=== PATIENT | male | born 1970 | race Caucasian/White ===

== ENCOUNTER 2021-10-01 11:09 | Emergency (ER) | payer OTHER, SELFPAY ==
[2021-10-01 12:39] VITALS: BP 125/91; PULSE 84; RESP 18; TEMP 37.1; O2SAT 99; BMI 28.5
--- NOTE | 2021-10-01 13:51 | ED_ITS ---
HPI - Skin/Abscess/Foreign Bdy General Chief complaint: Skin/Abscess/Foreign Body Stated complaint: infected burn on foot Time Seen by Provider: 10/01/21 13:47 Source: patient Mode of arrival: ambulatory History of Present Illness HPI narrative: 51-year-old male presenting to the ED complaining of burn to right foot s/p spilling hot gravy on foot 1 week ago. States area initially formed blister which popped spontaneous now becoming increasingly red and painful. Denies fever, chills/tingling MD complaint: abscess/boil Onset (ago): week(s) Quality: burning Pain Consistency: constant Related Data Home Medications Medication Instructions Recorded Confirmed lisinopril 10 mg tablet 10 mg PO DAILY 06/27/21 06/28/21 multivitamin 1 tab PO DAILY 06/27/21 06/28/21 nicotine (polacrilex) 4 mg buccal 4 mg BUCCAL Q4-8H PRN 06/27/21 06/28/21 mini lozenge (Nicorette) pantoprazole 40 mg tablet,delayed 40 mg PO DAILY 06/27/21 06/28/21 release simvastatin 20 mg tablet 20 mg PO BEDTIME 06/27/21 06/28/21 Previous Rx's Medication Instructions Recorded clonazepam 0.5 mg tablet 0.5 mg PO BID 30 Days #60 tab 06/27/21 clotrimazole-betamethasone 1 1 appl TOPICAL BID 10 Days #15 g 06/27/21 %-0.05 % topical cream docusate sodium 100 mg capsule 100 mg PO BID 15 Days #30 cap 06/28/21 (Colace) hydrocortisone 1 % topical cream 1 appl TOPICAL TID PRN 15 Days 06/28/21 (Preparation H Hydrocortisone) #28.4 g cephalexin 500 mg capsule 500 mg PO QID 7 Days #28 cap 10/01/21 silver sulfadiazine 1 % topical 1 appl TOPICAL BID #50 g 10/01/21 cream (Silvadene) Allergies Allergy/AdvReac Type Severity Reaction Status Date / Time No Known Allergies Allergy Verified 06/28/21 07:31 Review of Systems Review of Systems: Constitutional: No Fever, No Chills ENT/Mouth: No Ear Pain, No Nasal Congestion, No sore throat, No Rhinorrhea Cardiovascular: No Chest Pain, No SOB Respiratory: No Cough, No Wheezing Gastrointestinal: No Nausea, No Vomiting, No Abdominal pain Genitourinary: No Urinary Frequency, No Hematuria, No Flank Pain Musculoskeletal: No joint pain, No Myalgias, No Joint Swelling Skin: + Skin Lesions, No rash Neuro: No Weakness, No Numbness, No Paresthesias Yes all other systems are reviewed and are negative COUNT INCLUDES THE [facility] Past Medical History Attestation statement: The following information was validated with the patient. Surgical History History of biopsy History of tonsillectomy Family History Family History Father Heart attack Substance use disorder Mother Cancer of kidney Paternal Aunt Mental health disorder Substance use disorder Social History Social History Housing: Apartment Alcohol intake: former Patient Tobacco Use Status: Current everyday Tobacco user Tobacco use type: Cigarette Cigarettes Per Day: 7 service: No Current occupational status: employed Physical Exam Vital Signs: Vital Signs: Last Vital Signs Temp 98.8 F 10/01/21 12:39 Pulse 84 10/01/21 12:39 Resp 18 10/01/21 12:39 BP 125/91 H 10/01/21 12:39 Pulse Ox 99 10/01/21 12:39 BMI result Body Mass Index 28.5 Const: General: cooperative, healthy appearing and no acute distress Orientation/consciousness: patient oriented x3 Limitations: no limitations HENMT: Head: Yes normal to inspection Ears: hearing grossly normal bilaterally General nose exam: Normal external nose present Face and sinus: Yes normal facial exam Eyes: General: appearance normal, both eyes and all related structures EOM: EOMs intact bilaterally Neck: Neck: Yes normal visual inspection and Yes no meningeal signs Resp: Effort & Inspection: normal respiratory effort and no respiratory distress Cardio: Rate: regular rate Peripheral pulses: dorsalis pedis present Skin: Other: Please refer to image above. Popped blister with underlying erythema. Warm to touch. No streaking. Neurovascularly intact Rashes: no rashes Wounds: no wounds Neuro: General: patient oriented x3 and no meningeal signs Gait exam (Neuro): Normal gait present Extrem: General: Yes normal to inspection MDM - Skin/Abscess/Foreign Bdy MDM Narrative Medical decision making narrative: 51-year-old male presenting to the ED complaining of burn to right foot s/p spilling hot gravy on foot 1 week ago. On exam vital signs stable, NAD/nontoxic appearing, physical exam as above. Area is warm to touch. Concern for overlying cellulitis. Will treat patient with p.o. Keflex and silver Silvadene, discussed worrisome signs symptoms and strict return precautions Medical Records Attestation: I reviewed the patient's medical records. Lab Data Attestation: I reviewed the patient's lab results. Discharge Plan Discharge Clinical Impression: Burn Patient Disposition: Home, Self-Care Additional Instructions: Keflex as an oral antibiotic please take as prescribed In addition apply silver Silvadene to wound as prescribed If area becomes increasingly red, painful, there is red streaking up your foot or you develop fever please return to the ED Please follow-up with her doctor Prescriptions: New cephalexin 500 mg capsule 500 mg PO QID 7 Days Qty: 28 RF: 0 silver sulfadiazine [Silvadene] 1 % cream 1 appl topical BID Qty: 50 RF: 0 No Action multivitamin Tablet 1 tab PO DAILY RF: 0 pantoprazole 40 mg tablet,delayed release (DR/EC) 40 mg PO DAILY RF: 0 lisinopril 10 mg tablet 10 mg PO DAILY RF: 0 simvastatin 20 mg tablet 20 mg PO BEDTIME RF: 0 nicotine (polacrilex) [Nicorette] 4 mg mini lozenge 4 mg buccal Q4-8H PRNRF: 0 clonazepam 0.5 mg tablet 0.5 mg PO BID 30 Days Qty: 60 RF: 3 clotrimazole-betamethasone 1-0.05 % cream 1 appl topical BID 10 Days Qty: 15 RF: 0 docusate sodium [Colace] 100 mg capsule 100 mg PO BID 15 Days Qty: 30 RF: 1 hydrocortisone [Preparation H Hydrocortisone] 1 % cream 1 appl topical TID PRN (Reason: skin irritation) 15 Days Qty: 28.4 RF: 0 Referrals: Mikael Carpio PA-C [Primary Care Provider] - 3 days
[2021-10-01] MEDS: Silver Sulfadiazine 1 % Cream 20 GM TUBE 1 APPL TOPICAL (14:19)
== END 2021-10-01 14:26 | disposition home or self-care (01) ==
PROVIDERS: Emergency Provider Emergency Medicine; PCP Physician Assistant
DX: T25.021A Burn of unspecified degree of right foot, initial encounter (principal); T31.0 Burns involving less than 10% of body surface; X12.XXXA Contact with other hot fluids, initial encounter; Y93.G3 Activity, cooking and baking; M79.671 Pain in right foot; Y92.9 Unspecified place or not applicable; Y99.9 Unspecified external cause status; F17.200 Nicotine dependence, unspecified, uncomplicated
CPT/HCPCS: 99283

== ENCOUNTER 2023-01-01 10:16 | Outpatient (REF) | payer OTHER, SELFPAY ==
[2023-01-01 11:16] LABS: Hematocrit 40.7 % (42.0-52.0); Hemoglobin 13.6 g/dl (14.0-18.0); Mean Corpuscular HGB Conc 33.4 g/dl (31.0-36.0); Mean Corpuscular Hemoglobin 28.9 pg (27.0-33.0); Mean Corpuscular Volume 86.4 fL (80.0-98.0); Mean Platelet Volume 9.8 fL (9.4-12.4); Platelet Count 278 X10*3/uL (160-400); Red Blood Count 4.71 X10*6/uL (4.60-5.80); Red Cell Distribution Width 15.9 % (11.0-16.0); White Blood Count 7.8 X10*3/uL (4.8-10.8)
[2023-01-01 12:08] LABS: Alanine Aminotransferase 12 U/L (0-40); Albumin Level 4.1 g/dL (3.5-5.0); Alkaline Phosphatase 53 U/L (39-117); Anion Gap 12 (12-20); Aspartate Amino Transferase 16 U/L (5-37); Bilirubin Total 0.4 mg/dL (0.0-1.0); Blood Urea Nitrogen 14 mg/dL (9-16); Calcium 9.1 mg/dL (8.4-10.2); Carbon Dioxide 25 mmol/L (22-29); Chloride 106 mmol/L (96-108); Cholesterol 180 mg/dL; Estimated Glomerular Filt Rate > 60; Glucose Fasting 91 mg/dL (60-99); HDL Cholesterol 47 mg/dL; LDL Cholesterol Calculated 119 mg/dl; Potassium 4.7 mmol/L (3.3-5.1); Prostate Specific Antigen Scr 1.48 ng/mL (<0.05-4.0); Sodium 138 mmol/L (135-145); TSH reflex Free T4 1.02 uIU/mL (0.32-4.0); Total Protein 6.5 g/dL (6.5-8.0); Triglycerides 72 mg/dL
[2023-01-01 12:23] LABS: Creatinine Urine 84.55 mg/dL; Microalbumin Urine < 5.0 mg/L
== END 2023-01-01 10:17 | disposition home or self-care (01) ==
LOC: HO.LAB 10:16
PROVIDERS: PCP Physician Assistant; Visit Provider Physician Assistant
DX: Z12.5 Encounter for screening for malignant neoplasm of prostate (principal); I10 Essential (primary) hypertension; E78.2 Mixed hyperlipidemia
CPT/HCPCS: 36415; 80053; 80061; 82043; 84153; 84443; 85027

== ENCOUNTER → 2023-03-31 07:39 | Outpatient (REF) | payer OTHER, SELFPAY ==
--- NOTE | 2023-03-31 07:42 | CA_ITS ---
Acquisition Time: 2023-03-31 08:07:27 Total Exercise Time: 00:09:30 Test Indications: CP Medications: SEE H Protocol: ISIDORO Max HR: 150 BPM 89% of Pred: 168 BPM Max BP: 142/058 mmHG Max Work Load: 10.8 METS Exercise stress test with exercise 9 min 30 sec of Isidoro protocol, achieving 89% MPHR, with mild sob, no chest discomfort, with rare PVC, with normotensive response to exercise, without EKG changes meeting criteria for ischemia. Test reviewed with Dr East. Referred By: Mikael Carpio Overread By: SUZIE BAH
== END ==
LOC: HO.CARD 07:39
PROVIDERS: PCP Physician Assistant; Visit Provider Physician Assistant
DX: R07.9 Chest pain, unspecified (principal)
CPT/HCPCS: 93017

== ENCOUNTER 2023-04-18 13:10 | Outpatient (REF) | payer OTHER, SELFPAY ==
--- NOTE | ~2023-04-18 | CT_ITS ---
EXAMINATION: CT CHEST SCREENING CLINICAL INFORMATION: Current smoker. 37 pack year history. COMPARISON: None available. TECHNIQUE: Multidetector volumetric CT imaging of the chest is performed without contrast using low dose technique. Additional 2D coronal and sagittal reformatted images and axial 3D maximum intensity projection (MIP) images are generated on the CT workstation. This CT examination was performed using dose optimization techniques as appropriate, variously including the following: *Automated exposure control *Adjustment of mA and/or kV according to patient size (this includes techniques or standardized protocols for targeted exams where dose is matched to indication/reason for exam; i.e. extremities or head) *Use of iterative reconstruction technique DLP: 46 mGy-cm FINDINGS: LUNGS: The lungs are clear with no evidence of inflammation or nodules. MEDIASTINUM: Large esophageal hernia. The mediastinum is otherwise normal. CORONARY ARTERY CALCIFICATION: Mild PLEURA: There is no pleural effusion. No pleural mass or thickening. AXILLA: No lymphadenopathy. UPPER ABDOMEN: Unremarkable OSSEOUS STRUCTURES: Degenerative changes of the spine and mild scoliosis. CT/CT lung screening IMPRESSION: Emphysema. No pulmonary nodule. Large esophageal hernia. ASSESSMENT: Lung-RADS category: 1 benign RECOMMENDATION: Annual low-dose chest CT follow-up recommended.
== END 2023-04-18 13:11 | disposition home or self-care (01) ==
LOC: HO.CT 13:10
PROVIDERS: PCP Physician Assistant; Visit Provider Physician Assistant Medical
DX: Z12.2 Encounter for screening for malignant neoplasm of respiratory organs (principal); F17.210 Nicotine dependence, cigarettes, uncomplicated
CPT/HCPCS: 71271; G0296

== ENCOUNTER 2023-08-28 12:38 | Outpatient (REF) | payer OTHER, SELFPAY ==
[2023-08-28 13:00] LABS: Hematocrit 40.4 % (42.0-52.0); Hemoglobin 13.8 g/dl (14.0-18.0); Mean Corpuscular HGB Conc 34.2 g/dl (31.0-36.0); Mean Corpuscular Hemoglobin 30.1 pg (27.0-33.0); Mean Platelet Volume 8.9 fL (9.4-12.4); Platelet Count 189 X10*3/uL (160-400); Red Blood Count 4.59 X10*6/uL (4.60-5.80); Red Cell Distribution Width 19.9 % (11.0-16.0); White Blood Count 6.6 X10*3/uL (4.8-10.8)
[2023-08-28 13:50] LABS: Alanine Aminotransferase 19 U/L (0-40); Albumin Level 4.5 g/dL (3.5-5.0); Alkaline Phosphatase 50 U/L (39-117); Anion Gap 11 (12-20); Aspartate Amino Transferase 29 U/L (5-37); Bilirubin Total 0.4 mg/dL (0.0-1.0); Blood Urea Nitrogen 11 mg/dL (9-16); Calcium 9.4 mg/dL (8.4-10.2); Carbon Dioxide 28 mmol/L (22-29); Chloride 104 mmol/L (96-108); Cholesterol 224 mg/dL (<200); Estimated Glomerular Filt Rate > 60; Glucose Fasting 90 mg/dL (60-99); HDL Cholesterol 65 mg/dL (>40); LDL Cholesterol Calculated 111 mg/dL (<100); Sodium 139 mmol/L (135-145); Total Protein 7.5 g/dL (6.5-8.0); Triglycerides 242 mg/dL (<150)
== END 2023-08-28 12:39 | disposition home or self-care (01) ==
LOC: HO.LAB 12:38
PROVIDERS: PCP Physician Assistant; Visit Provider Physician Assistant
DX: I10 Essential (primary) hypertension (principal)
CPT/HCPCS: 36415; 80053; 80061; 85027

== ENCOUNTER 2023-09-02 15:23 | Outpatient (AMB) | payer OTHER, SELFPAY ==
[2023-09-02 15:34] VITALS: BP 124/80; PULSE 85; O2SAT 98; BMI 26.4
--- NOTE | 2023-09-02 15:34 | MHC.PC.OV ---
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 Accompanied by: Self / Same As Patient Allergies No Known Allergies Allergy (Verified 09/02/23 15:55) Medication List - Last Reconciled 09/02/23 by Mikael Carpio PA-C clonazepam 0.5 mg PO BID 30 days lisinopril 5 mg PO DAILY 90 days multivitamin 1 tab PO DAILY pantoprazole 40 mg PO DAILY 90 days simvastatin 20 mg PO BEDTIME 90 days Tobacco use date assessed: 02/24/23 Dental Screening Dental Screen Date: 09/02/23 Did you have a dental visit in the last 12 months?: No Did you have a dental problem in the last 6 months where you did not have access to dental care?: No Was dental information given to patient?: Patient has dentist HPI f/u HTN/ Smoking cessation, weight check HPI Details Patient is a 53 year-old here today for a follow-up visit. Patient has a past medical history significant for hyperlipidemia, GERD, tobacco use disorder, hypertension. Concerns--> Has been having left wrist and hand pain, Seeing a Surgeon ( Dr Sebastian) at [facility]. Has contouring EMG of his upper extremities which did not show any neuropathy. He reports he would like to get his hearing checked as he feels his hearing is declining. .. Hyperlipidemia: Most recent fasting lipid panel showing borderline high total cholesterol and improved LDL. Continues on statin therapy without any side effect. .. Hypertension:? He does reports blood pressures have been stable at home, today in office blood pressure is normal. ... Smoker:? Has recently got CT chest with lung cancer screening program and no nodules found. He he reports he has been weaning down his smoking.? He used to smoke a pack and half per day.? He reports now smoking 5-6 cigarettes per day. .. Generalized anxiety disorder:? He reports in the past seeing his psychiatrist whom has started him on clonazepam 0.5 mg twice a day.? He has been on benzodiazepines over the last 15 years with good effect.? He uses clonazepam once to twice a day as needed.? He does report having anxiety severe enough to cause him to be out of work. [facility] Medical History (Updated 09/02/23 @ 16:07 by Mikael Carpio PA-C) History of pneumothorax Nicotine dependence, cigarettes, uncomplicated GERD (gastroesophageal reflux disease) HLD (hyperlipidemia) HTN (hypertension) CHEYANNE (generalized anxiety disorder) Surgical History History of chest tube placement History of tonsillectomy History of biopsy Family History Father Heart attack, Onset Age: 54 Substance use disorder Mother Cancer of kidney Paternal Aunt Mental health disorder Substance use disorder Social History Housing: Apartment Alcohol intake: current Alcohol intake frequency: 0-2 drinks per day Patient Tobacco Use Status: Current everyday Tobacco user Tobacco use type: Cigarette Years Smoked: (onset 16yo, 1ppd x 36yrs, 35pyh) e-Cigarette/Vaping Use: Never Used Second Hand Smoke Exposure: Yes service: No Current occupational status: employed 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 Charles Evans, Marga Verde, Angel Hughes and colleagues, with an educational jesu from [employer]. Review of Systems Const Denies headache(s) Eyes Denies loss of vision ENT Denies vertigo, Denies dizziness, Denies headache(s) and Denies sore throat Card Denies chest pain, Denies leg edema and Denies lightheadedness Resp Denies cough, Denies hemoptysis and Denies wheezing GI Denies abdominal pain, Denies melena, Denies constipation, Denies diarrhea and Denies vomiting Denies dysuria, Denies urinary frequency and Denies urinary urgency Musc Denies arthralgias, Denies joint swelling, Denies numbness and Denies tingling Neuro Denies Abnormal speech present, Denies behavioral changes, Denies vertigo, Denies dizziness, Denies headache(s), Denies loss of vision, Denies memory loss, Denies numbness and Denies tingling Psych Denies anxiety, Denies behavioral changes, Denies depression, Denies memory loss and Denies panic attacks Jorge/Lymph Denies easy bleeding and Denies easy bruising Aller/Immun Denies wheezing Physical exam (Primary Care) Vital Signs: Last Vital Signs Pulse 85 09/02/23 15:34 BP 124/80 09/02/23 15:34 Pulse Ox 98 09/02/23 15:34 Oxygen Delivery Method Room Air 09/02/23 15:34 BMI result Body Mass Index 26.4 Tobacco/Smoking Status: Tobacco use Status Tobacco use date assessed 02/24/23 09/02/23 15:40 Patient Tobacco Use Status Current everyday Tobacco 09/02/23 15:40 Tobacco use type Cigarette 09/02/23 15:40 e-Cigarette/Vaping Use Never Used 09/02/23 15:40 Are you ready to quit: No Tobacco cessation counseling provided: Yes Items discussed: Nicotine replacement Relapse Prevention: discussed the importance of a supportive environment, discussed negative mood or depression after quitting, weight gain after smoking is common and discussed dietary, exercise and/or lifestyle changes Number of minutes spent counselin CPT code: 56211 - 4-10 Minutes Thrive Assessment: Date of Thrive Assessment Date Thrive assessed 02/24/23 09/02/23 15:40 Const General: healthy appearing, no acute distress, alert and awake Nutritional Appearance: well nourished Orientation/consciousness: oriented to person, oriented to place and oriented to time HENMT Ears: TM's normal bilaterally General nose exam: Normal nasal mucous membranes and turbinates present Eyes Conjunctivae: conjunctivae normal Sclerae: sclerae normal Pupils: Equal, round and reactive pupils present Neck Neck: Yes no lymphadenopathy and Yes no JVD Thyroid: Thyroid normal Carotids: no bruits Resp Effort & Inspection: normal respiratory effort and not tachypneic Auscultation: no crackles, no rales, no rhonchi and no wheezes Cardio Rate: regular rate Rhythm: regular rhythm Heart sounds: no murmurs and normal S1 and S2 GI Palpation (GI): Soft to palpation, nontender, no hepatomegaly and no splenomegaly Auscultation: normal bowel sounds Skin General skin exam: no rashes or lesions noted and dry skin Neuro General: oriented to person, oriented to place and oriented to time Cranial nerves: Yes Equal, round and reactive pupils present Speech: No Abnormal speech present Gait exam (Neuro): Normal gait present Motor exam (neuro): no tremor noted Extrem Right upper extremity: full ROM Left upper extremity: full ROM Right lower extremity: full ROM; no edema Left lower extremity: full ROM; no edema Psych Mental Status: mental status grossly normal Speech and movement: Normal speech and movement present Affect: normal affect Attitude: cooperative Thought process: Normal thought process present Assessment and Plan Assessment & Plan (1) HTN (hypertension): Code(s): I10 - Essential (primary) hypertension Qualifiers: Hypertension type: primary hypertension Qualified Code(s): I10 - Essential (primary) hypertension Plan: Blood pressure in office today acceptable. Will continue his current dose of lisinopril 5 mg. Advised to continue monitoring blood pressure with goal blood pressure to be below 140/90 and above 90/60 (2) HLD (hyperlipidemia): Code(s): E78.5 - Hyperlipidemia, unspecified Qualifiers: Hyperlipidemia type: mixed hyperlipidemia Qualified Code(s): E78.2 - Mixed hyperlipidemia Plan: Noted patient's most recent fasting lipids with appropriate total cholesterol and LDL. Continues on statin therapy without side effects (3) Tobacco dependence: Code(s): F17.200 - Nicotine dependence, unspecified, uncomplicated Plan: Patient does understand he needs to quit smoking and is willing to try nicotine lozenges. He has found very difficult to quit smoking. He will continue to try to wean down (4) Colon cancer screening: Code(s): Z12.11 - Encounter for screening for malignant neoplasm of colon Plan: Has yet to schedule colonoscopy. He is willing to do Cologuard (5) CHEYANNE (generalized anxiety disorder): Code(s): F41.1 - Generalized anxiety disorder Plan: Patient continues to follow mental therapist and a psychiatrist. He feels his anxiety is fairly well controlled with the use of clonazepam twice a day. (6) SNHL (sensorineural hearing loss): Code(s): H90.5 - Unspecified sensorineural hearing loss Qualifiers: Laterality: bilateral Qualified Code(s): H90.3 - Sensorineural hearing loss, bilateral Plan: Will send for hearing exam Orders: Orders Microalbumin, Random (w Creat) 09/02/23 I10 - Essential (primary) hypertension Complete Blood Count no Diff 09/02/23 K64.8 - Other hemorrhoids Comprehensive [place]. Panel Fast 09/02/23 I10 - Essential (primary) hypertension Lipid Panel 09/02/23 E78.2 - Mixed hyperlipidemia IRON PROFILE 09/02/23 D50.9 - Iron deficiency anemia, unspecified, K64.8 - Other hemorrhoids Referrals Cologuard Test Z12.11 - Encounter for screening for malignant neoplasm of colon Speech and Hearing Referral H90.3 - Sensorineural hearing loss, bilateral Medications: New nicotine (polacrilex) 2 mg buccal Q8H 30 days PRN 81 ea 0RF nicotine cravings F17.210 - Nicotine dependence, cigarettes, uncomplicated Refilled simvastatin 20 mg PO BEDTIME 90 days 90 tabs 1RF E78.2 - Mixed hyperlipidemia clonazepam 0.5 mg PO BID 30 days 60 tabs 3RF F41.1 - Generalized anxiety disorder Coding Level of Care Code Est Pt Level 4 (52944) Diagnoses Primary hypertension I10 Hypertension type: primary hypertension Mixed hyperlipidemia E78.2 Hyperlipidemia type: mixed hyperlipidemia Tobacco dependence F17.200 Colon cancer screening Z12.11 CHEYANNE (generalized anxiety disorder) F41.1 Sensorineural hearing loss (SNHL) of both ears H90.3 Laterality: bilateral Additional Codes Vital Signs *Quality* - CPT code: 79882 - 4-10 Minutes ([id number])
== END 2023-09-02 16:15 | disposition home or self-care (01) ==
PROVIDERS: PCP Physician Assistant; Visit Provider Physician Assistant
DX: I10 Essential (primary) hypertension (principal); E78.2 Mixed hyperlipidemia; F17.200 Nicotine dependence, unspecified, uncomplicated; Z12.11 Encounter for screening for malignant neoplasm of colon; F41.1 Generalized anxiety disorder; H90.3 Sensorineural hearing loss, bilateral
CPT/HCPCS: 99214; 99406

== ENCOUNTER 2023-12-10 09:55 | Emergency (ER) | payer OTHER, SELFPAY ==
--- NOTE | ~2023-12-10 | XR_ITS ---
EXAMINATION: XR CHEST CLINICAL INFORMATION: Cough COMPARISON: Screening CT scan of lungs on 04/18/2023 TECHNIQUE: 2 views of the chest were obtained. FINDINGS: vascularity. LUNGS: A persistent large retrocardiac hiatus hernia filled with air is seen. There is mild right-sided peribronchial cuffing. Flame-shaped alveolar infiltrates with air bronchograms is seen in anterior right lower lobe superior segment. No pneumothorax is seen. BONES: Bony skeleton is intact. XR/XR chest 2V IMPRESSION: 1. Unchanged large retrocardiac hiatus hernia, previously seen on CT scan. 2. Findings are compatible with chronic bronchitis or asthma. 3. Right lower lobe superior segment alveolar infiltrates are seen, suggestive of pneumonia. Follow-up chest x-ray until complete resolution is recommended.
[2023-12-10 09:58] VITALS: BP 151/90; PULSE 98; RESP 18; TEMP 36.6; O2SAT 99; BMI 24.4
--- NOTE | 2023-12-10 10:28 | ED_ITS ---
HPI - General Adult General Chief complaint: Upper Respiratory Symptoms Stated complaint: Bronchitis Time Seen by Provider: 12/10/23 10:28 Source: patient Mode of arrival: ambulatory Limitations: no limitations History of Present Illness HPI narrative: Patient is a 53 year old assigned male at with a history of HTN and tobacco smoking presenting to the emergency department today with a productive cough and coughing so much he is vomiting. Patient states that over the last 2 days, he has had a cough that continues to worsen and is coughing so much he is vomiting mucus. Patient denies any dizziness, lightheadedness, abdominal pain, nausea, vomiting, fever, chills, blurry vision, double vision, loss of vision, chest pain, difficulty breathing, shortness of breath, back pain, night sweats, pain with urination, increased urinary frequency, increased urinary urgency, blood in his urine or stool, syncope or a near syncopal episode, recent trauma or falls, bowel incontinence, bladder incontinence, bowel retention, bladder retention, or any other complaints at this time. Onset (ago): day(s) (2) Severity: mild Severity scale (1-10): 3 Relieving factors: none Exacerbating factors: none Associated symptoms: cough Treatments prior to arrival: none Related Data Home Medications Medication Instructions Recorded Confirmed multivitamin 1 tab PO DAILY 06/27/21 09/02/23 Previous Rx's Medication Instructions Recorded lisinopril 5 mg tablet 5 mg PO DAILY 90 days #90 tabs 02/24/23 pantoprazole 40 mg tablet,delayed 40 mg PO DAILY 90 days #90 tabs 05/02/23 release clonazepam 0.5 mg tablet 0.5 mg PO BID 30 days #60 tabs 09/02/23 nicotine (polacrilex) 2 mg buccal 2 mg buccal Q8H PRN nicotine 09/02/23 mini lozenge cravings 30 days #81 ea simvastatin 20 mg tablet 20 mg PO BEDTIME 90 days #90 tabs 09/02/23 benzonatate 100 mg capsule 100 mg PO BID PRN cough 7 days #14 12/10/23 caps doxycycline hyclate 100 mg tablet 100 mg PO BID 7 days #14 tabs 12/10/23 ondansetron 4 mg disintegrating 4 mg PO Q8H 3 days #9 tabs 12/10/23 tablet prednisone 20 mg tablet 20 mg PO DAILY 7 days #7 tabs 12/10/23 Allergies Allergy/AdvReac Type Severity Reaction Status Date / Time No Known Allergies Allergy Verified 12/10/23 09:58 Review of Systems Constitutional: Constitutional: Reports no additional constitutional complaints, Denies chills, Denies fever(s) and Denies night sweats Eyes: Eyes: Reports no additional eye complaints, Denies blurry vision, Denies change in vision, Denies diplopia, Denies eye discharge, Denies loss of vision and Denies eye pain ENT: Denies dizziness Cardiovascular: Cardiovascular: Reports no additional cardiovascular co mplaints, Denies chest pain, Denies lightheadedness, Denies Loss of Consciousness and Denies dyspnea Respiratory: Respiratory: Reports no additional respiratory complaints, Reports cough and Denies dyspnea Gastrointestinal: Gastrointestinal: Reports no additional gastrointestinal complaints, Denies abdominal pain, Denies melena, Denies hematochezia, Denies change in bowel habits and Denies change in stool character Genitourinary: Genitourinary: Reports no additional male genitourinary complaints, Denies hematuria, Denies oliguria, Denies difficulty urinating, Denies dysuria, Denies urinary frequency, Denies urinary hesitancy, Denies urinary incontinence and Denies urinary urgency Musculoskeletal: Musculoskeletal: Reports no additional musculoskeletal complaints, Denies numbness and Denies tingling Neurologic: Denies dizziness, Denies loss of vision, Denies numbness and Denies tingling Psychiatric: Psychiatric: Reports no additional psychiatric complaints Endocrine: Endocrine: Reports no additional endocrine complaints Hematologic/Lymphatic: Hematologic/Lymphatic: Reports no additional hematologic/lymphatic complaints Allergic/Immunologic: Allergic/Immunologic: Reports no additional allergic/immunologic complaints [facility] Past Medical History Attestation statement: The following information was validated with the patient. Source: old records reviewed and nursing notes reviewed Medical History History of pneumothorax Nicotine dependence, cigarettes, uncomplicated GERD (gastroesophageal reflux disease) HLD (hyperlipidemia) HTN (hypertension) CHEYANNE (generalized anxiety disorder) Surgical History History of chest tube placement History of tonsillectomy History of biopsy Family History Family History Father Heart attack, Onset Age: 54 Substance use disorder Mother Cancer of kidney Paternal Aunt Mental health disorder Substance use disorder Social History Social History Housing: Apartment Alcohol intake: current Alcohol intake frequency: 0-2 drinks per day Patient Tobacco Use Status: Current everyday Tobacco user Tobacco use type: Cigarette Years Smoked: (onset 16yo, 1ppd x 36yrs, 35pyh) e-Cigarette/Vaping Use: Never Used Second Hand Smoke Exposure: Yes Advance Directives: No Advance Directives Information Provided: No service: No Current occupational status: employed 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 [employer] Cognitive needs: No Hearing needs: No Vision needs: Yes (glasses) Physical Exam ED Vital Signs: Vital Signs - 24 hr 12/10/23 09:58 Temperature 98 F Pulse Rate 98 Respiratory Rate 18 Blood Pressure 151/90 H Pulse Oximetry 99 Oxygen Delivery Method Room Air BMI result Body Mass Index 24.4 Const General: cooperative, no acute distress, alert and awake Nutritional Appearance: well nourished Orientation/consciousness: patient oriented x3 Limitations: no limitations HENMT Head: Yes normal to inspection and Yes atraumatic Ears: hearing grossly normal bilaterally and external ears normal General nose exam: Normal external nose present, no nasal discharge noted and no epistaxis Face and sinus: Yes normal facial exam, No abrasion and No laceration Mouth: Normal oral and palatal mucosa present, no drooling and no muffled voice Eyes General: appearance normal, both eyes and all related structures Periorbital: periorbital findings normal Eyelids: Yes eyelids normal Conjunctivae: conjunctivae normal Pupils: Equal, round and reactive pupils present EOM: EOMs intact bilaterally Neck Neck: Yes normal visual inspection, Yes full ROM and Yes no lymphadenopathy Chest Chest palpation & inspection: normal inspection of the chest Resp Effort & Inspection: normal respiratory effort and able to speak in complete sentences Auscultation: clear to auscultation bilaterally Cardio Rate: regular rate Rhythm: regular rhythm GI Inspection: Yes normal to inspection Neuro General: patient oriented x3 and moves all extremities Cranial nerves: Yes Equal, round and reactive pupils present Cognition (Neuro): normal cognition Motor exam (neuro): 5/5 motor strength present throughout Sensory Exam: Normal double simultaneous stimulation for sensation Coordination: [id number] test normal Extrem General: Yes normal to inspection, Yes full ROM and Yes capillary refill normal Psych Appearance: grossly normal Mental Status: mental status grossly normal Affect: normal affect Attitude: cooperative Thought process: Normal thought process present Thought content: Normal thought content present Insight: Good insight present (Psych) Medications Administered Discontinued Medications Generic Name Dose Route Start Last Admin Trade Name Michael PRN Reason Stop Dose Admin Ondansetron HCl 4 mg 12/10/23 11:34 12/10/23 11:41 Ondansetron Odt 4 Mg Tab.Bairondis GARETHINGU 12/10/23 11:35 4 mg ONCE ONE Administration Procedures Smoking Cessation Time Spent Discussing Smoking Cessation w/Patient (min): 15 Patient Acknowledges Need for Cessation: Yes Medical Decision Making Medical Decision Making MDM Narrative: Patient is a 53 year old assigned male at with a history of HTN and tobacco use presenting to the emergency department today with worsening cough. Patient's physical exam was unremarkable. Patient's COVID-19 and influenza tests were negative. Patient's chest x-ray showed right lower lobe pneumonia. I explained my physical exam findings as well as all test results to the patient. I answered all questions asked by the patient. I spent >10 minutes counseling the patient on smoking cessation. I stressed the importance of the patient taking his medication as prescribed. I stressed the importance of the patient following up with his primary care provider. I stressed the importance of the patient returning to the emergency department immediately if his symptoms were to worsen or if he were to develop any dizziness, shortness of breath, difficulty breathing, chest pain, blurry vision, loss of vision, nausea, vomiting, abdominal pain, fever, chills, back pain, or any other complaints. Patient verbalized agreement and understanding with this treatment plan and discharge. Differential Diagnosis Differential Diagnoses: The differential diagnosis associated with the presentation includes pneumonia bronchitis Influenza COVID RSV Admission/Observation Consideration of admission/observation: Escalation of care including admission/observation considered Patient would have been admitted to the hospital had his work up had any findings where hospital admission was appropriate and his clinical presentation warranted hospital admission. Lab Data [facility] Lab Attestation statement: I reviewed the patient's lab results. My interpretation of these results are in the MDM Rationale portion of this note. Labs: Lab Results 12/10/23 Range/Units 10:45 COVID-19 (TRISTIAN) Negative (Negative) COVID-19 Clin Com See Note Influenza Type A (CHARITO) Negative (Negative) Influenza Type B (CHARITO) Negative (Negative) Influenza A & B Note See Note Independent Interpretation I performed an independent interpretation of an: Plain X-Ray Interpretation: My interpretation is in agreement with the radiologist's impression of this imaging study. EXAMINATION: XR CHEST CLINICAL INFORMATION: Cough COMPARISON: Screening CT scan of lungs on 04/18/2023 TECHNIQUE: 2 views of the chest were obtained. FINDINGS: vascularity. LUNGS: A persistent large retrocardiac hiatus hernia filled with air is seen. There is mild right-sided peribronchial cuffing. Flame-shaped alveolar infiltrates with air bronchograms is seen in anterior right lower lobe superior segment. No pneumothorax is seen. BONES: Bony skeleton is intact. XR/XR chest 2V IMPRESSION: 1. Unchanged large retrocardiac hiatus hernia, previously seen on CT scan. 2. Findings are compatible with chronic bronchitis or asthma. 3. Right lower lobe superior segment alveolar infiltrates are seen, suggestive of pneumonia. Follow-up chest x-ray until complete resolution is recommended. Dictated By: Jorge L Roe Signed By: Electronically signed by Jorge L Roe 12/10/23 1126 Radiology Impression Discussion of test interpretation with radiology: I have reviewed the radiologist's reading. Prescription Management I considered prescription management with: Antibiotic (patient prescribed an antibiotic for pneumonia) Discharge Plan Discharge Clinical Impression: Pneumonia Patient Disposition: Home, Self-Care Instructions: Pneumonia (ED) Additional Instructions: Follow up with your primary care provider. Return to the emergency department immediately if your symptoms worsen or if you develop any dizziness, shortness of breath, difficulty breathing, chest pain, blurry vision, loss of vision, nausea, vomiting, abdominal pain, fever, chills, back pain, or any other complaints. Prescriptions: New prednisone 20 mg tablet 20 mg PO DAILY 7 Days Qty: 7 0RF benzonatate 100 mg capsule 100 mg PO BID PRN (Reason: cough) 7 Days Qty: 14 0RF doxycycline hyclate 100 mg tablet 100 mg PO BID 7 Days Qty: 14 0RF ondansetron 4 mg tablet,disintegrating 4 mg PO Q8H 3 Days Qty: 9 0RF No Action pantoprazole 40 mg tablet,delayed release (DR/EC) 40 mg PO DAILY 90 Days Qty: 90 1RF multivitamin Tablet 1 tab PO DAILY lisinopril 5 mg tablet 5 mg PO DAILY 90 Days Qty: 90 1RF simvastatin 20 mg tablet 20 mg PO BEDTIME 90 Days Qty: 90 1RF clonazepam 0.5 mg tablet 0.5 mg PO BID 30 Days Qty: 60 3RF nicotine (polacrilex) 2 mg mini lozenge 2 mg buccal Q8H PRN (Reason: nicotine cravings) 30 Days Qty: 81 0RF Referrals: Mikael Carpio PA-C [Primary Care Provider] - Stand Alone Forms: Work/School Release Interventions: ED Discharge Assessment Last Done: 12/10/23 12:27 Discharge Date/Time: 12/10/23 12:28 Print Language: Greek
[2023-12-10 11:13] LABS: COVID-19 Test Negative (Negative); IDNOW Serial# 58CA691E
[2023-12-10 11:16] LABS: IDNOW Serial# 152EDE1D; Influenza A Negative (Negative); Influenza B2 Negative (Negative)
[2023-12-10] MEDS: Ondansetron ODT 4 MG TAB.RAPDIS TRANSLINGU (11:41)
== END 2023-12-10 12:28 | disposition home or self-care (01) ==
PROVIDERS: Emergency Provider Emergency Medicine Emergency Medical Services; PCP Physician Assistant
DX: J18.9 Pneumonia, unspecified organism (principal); Z11.52 Encounter for screening for COVID-19; F17.210 Nicotine dependence, cigarettes, uncomplicated
CPT/HCPCS: 71046; 87502; 87635; 99283

== ENCOUNTER 2024-02-24 11:57 | Outpatient (REF) | payer OTHER, SELFPAY ==
[2024-02-24 12:57] LABS: Hematocrit 38.5 % (42.0-52.0); Hemoglobin 13.9 g/dl (14.0-18.0); Mean Corpuscular HGB Conc 36.1 g/dl (31.0-36.0); Mean Corpuscular Hemoglobin 33.3 pg (27.0-33.0); Mean Corpuscular Volume 92.3 fL (80.0-98.0); Mean Platelet Volume 9.5 fL (9.4-12.4); Platelet Count 181 X10*3/uL (160-400); Red Blood Count 4.17 X10*6/uL (4.60-5.80); Red Cell Distribution Width 14.7 % (11.0-16.0); White Blood Count 5.8 X10*3/uL (4.8-10.8)
[2024-02-24 13:41] LABS: Alanine Aminotransferase 20 U/L (0-40); Albumin Level 4.1 g/dL (3.5-5.0); Alkaline Phosphatase 52 U/L (39-117); Anion Gap 14 (12-20); Aspartate Amino Transferase 29 U/L (5-37); Bilirubin Total 0.3 mg/dL (0.0-1.0); Blood Urea Nitrogen 8 mg/dL (9-16); Calcium 8.5 mg/dL (8.4-10.2); Carbon Dioxide 24 mmol/L (22-29); Chloride 104 mmol/L (96-108); Cholesterol 190 mg/dL (<200); Estimated Glomerular Filt Rate > 60; Glucose Fasting 89 mg/dL (60-99); HDL Cholesterol 62 mg/dL (>40); Iron 35 mcg/dL (45-160); LDL Cholesterol Calculated 104 mg/dL (<100); Percent Iron Saturation 11 % (15-50); Potassium 3.6 mmol/L (3.3-5.1); Sodium 138 mmol/L (135-145); Total Iron Binding Capacity 328 mcg/dL (228-428); Triglycerides 122 mg/dL (<150); Unsaturated Iron Binding 293 ug/dL
[2024-02-24 14:33] LABS: Creatinine Urine 175.32 mg/dL; Microalbumin Urine < 5.0 mg/L
== END 2024-02-24 11:58 | disposition home or self-care (01) ==
LOC: HO.LAB 11:57
PROVIDERS: PCP Physician Assistant; Visit Provider Physician Assistant
DX: I10 Essential (primary) hypertension (principal); K64.8 Other hemorrhoids; D50.9 Iron deficiency anemia, unspecified; E78.2 Mixed hyperlipidemia
CPT/HCPCS: 36415; 80053; 80061; 82043; 82570; 83540; 85027

== ENCOUNTER 2024-03-02 13:17 | Outpatient (AMB) | payer OTHER, SELFPAY ==
[2024-03-02 13:22] VITALS: BP 144/86; PULSE 103; O2SAT 97; BMI 25.7
--- NOTE | 2024-03-02 13:22 | MHC.PC.OV ---
Vital Signs 03/02/24 13:22 Height 5 ft 9 in Weight 174 lb 2 oz BMI 25.7 BP 144/86 H Blood Pressure Location Lt brachial Position Sitting Pulse 103 H Pulse Source Pulse Oximeter Pulse Oximetry (%) 97 Oxygen Delivery Method Room Air Intake Visit Reasons: Annual exam Intake Note: Patient is here today for a physical. 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 Accompanied by: Self / Same As Patient Allergies varenicline [From Chantix] Adverse Reaction (Intermediate, Verified 03/02/24 13:46) mood changes Medication List - Last Reconciled 03/02/24 by Mikael Carpio PA-C clonazepam 0.5 mg PO BID 30 days ferrous sulfate 325 mg PO BID 30 days lisinopril 5 mg PO DAILY 90 days multivitamin 1 tab PO DAILY nicotine (polacrilex) 2 mg buccal Q8H PRN 30 days pantoprazole 40 mg PO DAILY 90 days simvastatin 20 mg PO BEDTIME 90 days Tobacco use date assessed: 03/02/24 Dental Screening Dental Screen Date: 03/02/24 Did you have a dental visit in the last 12 months?: Yes Did you have a dental problem in the last 6 months where you did not have access to dental care?: No Was dental information given to patient?: Patient has dentist HPI Annual exam HPI Details Patient is a 53 year-old here today for a routine annual physical.. Patient has a past medical history significant for hyperlipidemia, GERD, tobacco use disorder, hypertension. Concerns--> reports feeling very tired during the daytime. Often falling asleep at work. He reports this has been evident over the last few years. He does have a moderate risk for obstructive sleep apnea. Will send for sleep study to evaluate for obstructive sleep apnea. .. Hyperlipidemia: Most recent fasting lipid panel showing borderline high total cholesterol and improved LDL. Continues on statin therapy without any side effect. .. Hypertension:? Patient's blood pressure today in office slightly elevated. Increase his lisinopril to 10 mg for better blood pressure control. ... Smoker:? Has recently got CT chest with lung cancer screening program and no nodules found. He he reports he has been weaning down his smoking.? He used to smoke a pack and half per day.? He reports now smoking 11 cigarettes per day. .. Generalized anxiety disorder:? He reports in the past seeing his psychiatrist whom has started him on clonazepam 0.5 mg twice a day.? He has been on benzodiazepines over the last 15 years with good effect.? He uses clonazepam once to twice a day as needed.? He does report having anxiety severe enough to cause him to be out of work. colonoscopy: Reports doing cologaurd in 2019 and reports it was normal. Willing to do Cologuard again Vaccines: Declines COVID Vaccine or flu, needs PCV-declines, up-to-date with tetanus vaccine , considering shingrex Laboratory Tests 01/01/23 08/28/23 02/24/24 10:26 12:47 12:18 RBC 4.59 L 4.17 L Hgb 13.6 L 13.8 L 13.9 L Creatinine 0.93 0.84 Iron 35 L Triglycerides 242 H 122 Cholesterol 180 224 H 190 LDL Cholesterol, C alc 119 111 H 104 H HDL Cholesterol 47 65 PSA Screen 1.48 PFSH Medical History History of pneumothorax Nicotine dependence, cigarettes, uncomplicated GERD (gastroesophageal reflux disease) HLD (hyperlipidemia) HTN (hypertension) CHEYANNE (generalized anxiety disorder) Surgical History History of chest tube placement History of tonsillectomy History of biopsy Family History Father Heart attack, Onset Age: 54 Substance use disorder Mother Cancer of kidney Paternal Aunt Mental health disorder Substance use disorder Social History (Updated 03/02/24 @ 13:44 by Mikael Carpio PA-C) Housing: Apartment Alcohol intake: current Alcohol intake frequency: a few times a month Patient Tobacco Use Status: Current everyday Tobacco user Tobacco use type: Cigarette Cigarettes Per Day: 11 Years Smoked: (onset 16yo, 1ppd x 36yrs, 35pyh) e-Cigarette/Vaping Use: Never Used Second Hand Smoke Exposure: Yes service: No Current occupational status: employed 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 1. Little interest or pleasure in doing things: not at all 2. Feeling down, depressed, or hopeless: not at all 3. Trouble falling or staying asleep, or sleeping too much: not at all 4. Feeling tired or having little energy: not at all 5. Poor appetite or overeating: not at all 6. Feeling bad about yourself - or that you are a failure or have let yourself or your family down: not at all 7. Trouble concentrating on things, such as reading the newspaper or watching television: not at all 8. Moving or speaking so slowly that other people could have noticed. Or the opposite - being so fidgety or restless that you have been moving around a lot more than usual: not at all 9. Thoughts that you would be better off or of hurting yourself in some way: not at all Total score: 0 Depression Screening Interpretation: Negative Depression Screening Done: Yes 13053 - PHQ-9 Billing: Yes Source: Developed by Drs. Charles Evans, Marga Verde, Angel Hughes and colleagues, with an educational jesu from [employer]. Thrive Questionnaire Date Thrive assessed: 03/02/24 I am a: Patient What is your living situation today?: I have a steady place to live Within the past 12 months, did the food you bought not last and you didn't have the money to get more?: Never true Within the past 12 months, did you worry whether your food would run out before you got money to buy more?: Never true Do you have trouble paying for medicines?: No Do you have trouble getting transportation to medical appointments?: No Do you have trouble paying your heating and electricity bill?: No Do you have trouble taking care of your child, family member or friend?: No Do you have trouble with day-to-day activities such as bathing, preparing meals, shopping, managing finances, etc.?: No Are you currently unemployed and looking for a job?: No Are you interested in more education?: No Please select the resources that you would like help with: None Currently or been in a relationship where the following occur: no concerns reported THRIVE Score: 0 AUDIT C Alcohol Use Questionnaire (AUDIT-C) 1. How often do you have a drink containing alcohol?: Never 3. How often do you have six or more drinks on one occasion?: Never Total Score: 0 CHEYANNE-7 AMB Questionnaire CHEYANNE-7 Date CHEYANNE - 7 assessed: 03/02/24 Feeling nervous, anxious, or on edge: 0 = Not at all Not being able to stop or control worryin = More than half the days Worrying too much about different things: 2 = More than half the days Trouble relaxin = Not at all Being so restless that it is hard to sit still: 0 = Not at all Becoming easily annoyed or irritable: 3 = Nearly every day Feeling afraid as if something awful might happen: 3 = Nearly every day Total CHEYANNE-7 score (0-4 normal; 5-9 mild; 10-14 moderate; 15-21 severe): 10 Source: Developed by Drs. Charles Evans, Marga Verde, Angel Hughes and colleagues, with an educational jesu from [employer]. CHEYANNE-7 Assessment Billing CHEYANNE-7 Assessment Tool: CHEYANNE-7 Assessment 77609 Review of Systems Const Denies excessive sweating, Denies fatigue, Denies headache(s), Reports malaise and Reports stops breathing during sleep Eyes Denies blurry vision ENT Denies dysphagia, Denies vertigo, Denies dizziness, Denies headache(s), Denies hearing loss and Denies tinnitus Card Denies chest pain, Denies chest pain with activity, Denies syncope, Denies irregular heart rhythm and Denies dyspnea Resp Denies chest congestion, Denies cough, Denies hemoptysis, Denies dyspnea and Denies wheezing GI Denies abdominal pain, Denies melena, Denies hematochezia, Denies coffee ground emesis, Denies dysphagia, Denies diarrhea, Denies nausea and Denies vomiting Denies difficulty urinating, Denies dysuria, Denies urinary frequency, Denies urinary hesitancy and Denies urinary urgency Musc Denies arthralgias, Denies limited range of motion, Denies muscle cramps and Denies muscle weakness Skin/Breast Denies rash and Denies skin ulcer Neuro Denies Abnormal speech present, Denies confusion, Denies vertigo, Denies dizziness, Denies syncope, Denies headache(s), Denies memory loss and Denies seizure-like activity Psych Denies anxiety, Denies confusion, Denies depression, Denies memory loss, Denies panic attacks and Denies paranoia Endo Denies excessive sweating, Denies fatigue, Denies flushing, Denies polydipsia and Denies polyuria Aller/Immun Denies wheezing Physical exam (Primary Care) Vital Signs: Last Vital Signs Pulse 103 H 03/02/24 13:22 BP 144/86 H 03/02/24 13:22 Pulse Ox 97 03/02/24 13:22 Oxygen Delivery Method Room Air 03/02/24 13:22 BMI result Body Mass Index 25.7 Tobacco/Smoking Status: Tobacco use Status Tobacco use date assessed 03/02/24 03/02/24 13:24 Patient Tobacco Use Status Current everyday Tobacco 03/02/24 13:24 Tobacco use type Cigarette 03/02/24 13:24 e-Cigarette/Vaping Use Never Used 03/02/24 13:24 PHQ-9: PHQ-9 Score PHQ-9: Total score 0 03/02/24 13:24 Depression Screening Interpretation: Negative Thrive Assessment: Date of Thrive Assessment Date Thrive assessed 03/02/24 03/02/24 13:24 Currently or been in a relationship where the following occur: no concerns reported Const General: cooperative, comfortable, no acute distress, alert and awake; No confusion Orientation/consciousness: oriented to person, oriented to place, patient oriented x3 and No confusion HENMT Head: Yes normocephalic Ears: external ears normal and TM's normal bilaterally Face and sinus: No sinus tenderness Mouth: Normal oral and palatal mucosa present and tongue normal Teeth and gingiva: dentition normal and gingiva normal Throat: Yes posterior oropharynx normal, Yes tonsils normal and Yes uvula midline Eyes Conjunctivae: conjunctivae normal Sclerae: sclerae normal Pupils: Equal, round and reactive pupils present EOM: EOMs intact bilaterally Direct Ophthalmoscopy: No no photophobia Neck Neck: Yes no lymphadenopathy, No tender and Yes no JVD Thyroid: Thyroid normal Carotids: no bruits Chest Chest palpation & inspection: no tenderness Resp Effort & Inspection: normal respiratory effort, no audible wheezes, not labored and no stridor Auscultation: no crackles, no rales, no rhonchi and no wheezes Cardio Jugular venous distension: no JVD Rate: regular rate, not bradycardic and not tachycardic Rhythm: regular rhythm Bruits: no carotid bruits Peripheral pulses: Peripheral pulses 2+ throughout GI Inspection: Yes normal to inspection, No abdominal wall ecchymosis and No visible herniation Palpation (GI): Soft to palpation, nontender, no guarding, not rigid and No hepatosplenomegaly present Auscultation: normoactive bowel sounds General: Yes no CVA tenderness Back/Spine/Pelvis Back: no CVA tenderness and No back tenderness Cervical Spine: cervical ROM normal Thoracic/Lumbar Spine: thoracic and lumbar spine normal to inspection, straight leg raise negative bilaterally, No thoraco-lumbar ROM limited and No lumbar spinal tenderness Skin Lesions: no lesions Rashes: no rashes Wounds: no wounds Neuro General: oriented to person, oriented to place, patient oriented x3, CN's II-XI intact bilaterally and No confusion Cranial nerves: Yes Equal, round and reactive pupils present and Yes Normal accommodation reflex present Cognition (Neuro): normal cognition Speech: No Abnormal speech present Gait exam (Neuro): Normal gait present Motor exam (neuro): 5/5 motor strength present throughout Extrem Right upper extremity: full ROM; no cyanosis Left upper extremity: full ROM; no cyanosis Right lower extremity: no edema Left lower extremity: no edema Psych Appearance: grossly normal Mental Status: mental status grossly normal Affect: normal affect Attitude: cooperative Thought process: Normal thought process present Assessment and Plan Assessment & Plan (1) Annual physical exam: Code(s): Z00.00 - Encounter for general adult medical examination without abnormal findings (2) HTN (hypertension): Code(s): I10 - Essential (primary) hypertension Qualifiers: Hypertension type: primary hypertension Qualified Code(s): I10 - Essential (primary) hypertension Plan: Blood pressure in office today acceptable. Will continue his current dose of lisinopril 5 mg. Advised to continue monitoring blood pressure with goal blood pressure to be below 140/90 and above 90/60 (3) HLD (hyperlipidemia): Code(s): E78.5 - Hyperlipidemia, unspecified Qualifiers: Hyperlipidemia type: mixed hyperlipidemia Qualified Code(s): E78.2 - Mixed hyperlipidemia Plan: Noted patient's most recent fasting lipids with appropriate total cholesterol and LDL. Continues on statin therapy without side effects (4) Tobacco dependence: Code(s): F17.200 - Nicotine dependence, unspecified, uncomplicated Plan: Patient does understand he needs to quit smoking he does have nicotine lozenges available to him. Has tried Chantix though had mood changes as a side effect. He has found very difficult to quit smoking. He will continue to try to wean down (5) Colon cancer screening: Code(s): Z12.11 - Encounter for screening for malignant neoplasm of colon Plan: Has yet to schedule colonoscopy. He is willing to do Cologuard (6) CHEYANNE (generalized anxiety disorder): Code(s): F41.1 - Generalized anxiety disorder Plan: Patient's CHEYANNE-7 score positive for anxiety which has been existing condition for him. Patient continues to follow mental therapist and a psychiatrist. He feels his anxiety is fairly well controlled with the use of clonazepam twice a day. (7) DION (obstructive sleep apnea): Code(s): G47.33 - Obstructive sleep apnea (adult) (pediatric) Plan: He does report daytime somnolence, he does admit to significant other doing he snores very loud. He is interested in getting in-lab sleep study to evaluate for obstructive sleep apnea. STOP BANG- questionnaire showing moderate risk for sleep apnea (8) HTN (hypertension): Code(s): I10 - Essential (primary) hypertension Qualifiers: Hypertension type: primary hypertension Qualified Code(s): I10 - Essential (primary) hypertension Plan: Patient's blood pressure elevated today in office. Will increase his lisinopril to 10 mg for better blood pressure control. Advised to monitor blood pressure at home with goal blood pressure be below 140/90 Orders: Orders RT PSG in-lab sleep study Today G47.33 - Obstructive sleep apnea (adult) (pediatric) Lipid Panel 6 Months E78.2 - Mixed hyperlipidemia Prostate Specific Antigen Scr 6 Months I10 - Essential (primary) hypertension, Z12.5 - Encounter for screening for malignant neoplasm of prostate Comprehensive [place]. Panel Fast 6 Months I10 - Essential (primary) hypertension Complete Blood Count no Diff 6 Months I10 - Essential (primary) hypertension Referrals Cologuard Test Z12.11 - Encounter for screening for malignant neoplasm of colon Medications: New lisinopril 10 mg PO DAILY 90 tabs 1RF I10 - Essential (primary) hypertension Refilled pantoprazole 40 mg PO DAILY 90 days 90 tabs 1RF K21.9 - Gastro-esophageal reflux disease without esophagitis clonazepam 0.5 mg PO BID 30 days 60 tabs 3RF F41.1 - Generalized anxiety disorder Discontinued lisinopril Discontinued Reason: Doctor's Order 5 mg PO DAILY 90 days 90 tabs 1RF I10 - Essential (primary) hypertension Patient Instructions: Goal: Blood pressure to remain below 140/90 Barrier: Adherence to healthy eating habits and physical activity. Coding Level of Care Code Est Pt Prev Care 40-64y(99377) Diagnoses Annual physical exam Z00.00 Primary hypertension I10 Hypertension type: primary hypertension Mixed hyperlipidemia E78.2 Hyperlipidemia type: mixed hyperlipidemia Tobacco dependence F17.200 Colon cancer screening Z12.11 CHEYANNE (generalized anxiety disorder) F41.1 DION (obstructive sleep apnea) G47.33 Additional Codes CHEYANNE-7 Assessment Billing - CHEYANNE-7 Assessment Tool: CHEYANNE-7 Assessment 52511 ([id number])
== END 2024-03-02 15:47 | disposition home or self-care (01) ==
PROVIDERS: PCP Physician Assistant; Visit Provider Physician Assistant
DX: Z00.00 Encounter for general adult medical examination without abnormal findings (principal); I10 Essential (primary) hypertension; E78.2 Mixed hyperlipidemia; F17.210 Nicotine dependence, cigarettes, uncomplicated; F41.1 Generalized anxiety disorder; G47.33 Obstructive sleep apnea (adult) (pediatric)
CPT/HCPCS: 99396

== ENCOUNTER 2024-08-04 14:40 | Outpatient (REF) | payer OTHER, SELFPAY ==
--- NOTE | ~2024-08-04 | XR_ITS ---
EXAMINATION: XR LUMBOSACRAL SPINE CLINICAL INFORMATION: Low back pain. COMPARISON: None available. TECHNIQUE: Three views of the lumbosacral spine. FINDINGS: S-shaped curvature of the lumbar spine. Endplate sclerosis at the L5-S1. Grade 1 anterolisthesis L5-S1. No lytic or blastic lesions. Calcified plaques, vascular. XR/XR lumbar spine 2-3V IMPRESSION: Grade 1 anterolisthesis L5-S1. Electronically signed by: Jairo Hayes MD 09/03/2024 03:09 PM DARRIN MARSH
== END 2024-08-04 14:41 | disposition home or self-care (01) ==
LOC: HO.XRAY 14:40
PROVIDERS: PCP Physician Assistant; Visit Provider Physician Assistant
DX: M54.50 Low back pain, unspecified (principal)
CPT/HCPCS: 72100

== ENCOUNTER → 2024-08-04 14:44 | Outpatient (BNV) | payer OTHER, SELFPAY | PROVIDERS: PCP Physician Assistant; Visit Provider Radiology Diagnostic Radiology | DX: M54.50 Low back pain, unspecified (principal) | CPT/HCPCS: 72100 ==

== ENCOUNTER 2024-08-16 09:42 | Outpatient (AMB) | payer OTHER, SELFPAY ==
--- NOTE | 2024-08-16 09:50 | MHC.OFFVIS ---
Vital Signs 08/16/24 09:56 Height 5 ft 9 in Weight 173 lb 2 oz BMI 25.6 BP 110/70 Blood Pressure Location Lt brachial Position Sitting Respiration 16 Pulse 90 Pulse Source Pulse Oximeter Pulse Oximetry (%) 97 Oxygen Delivery Method Room Air Intake Visit Reasons: Low Back Pain Intake Note: Patient comes in for initial visit was referred by [facility] primary care. He is accompanied by María Elena Diamond. Reports pain 4.5/10. Accompanied by: Spouse Allergies varenicline [From Chantix] Adverse Reaction (Intermediate, Verified 08/16/24 09:59) mood changes HPI Comments Details: Rodrigo is very pleasant 54 years old gentleman who presents in my office with complains on pain in the lower back. He reports that this pain started gradually 2 and 1/2 months ago. This is not even chronic pain yet. He reports that he does not know the reason why his pain started. He reports that pain is mostly aggravated with prolonged standing and prolonged sitting. Pain is aggravated with activities. He reports that flexing forward hurts him more than flexing backwards. He reports that he works full-time and she performs very often torso twisting but not heavy lifting or sharp bending. Because of his pain he can not sleep normally, he can not do activities of daily living, he can take care of himself but he can not function normally. Movements aggravate his pain heat applications and ibuprofen oral medication makes his pain better. The pain is most severe at night and in the evening. The least severe in the morning. In terms of tissue damage he describes his pain as stabbing, lancinating, sharp, lacerating, dull, hurting, heavy, punishing, killing, spreading, piercing, right, tearing. He never had physical therapy. He had an x-ray of the lumbar spine performed by primary care provider however the results are not ready yet. He never had physical therapy never had chiropractic manipulations. Jhonathan had acupuncture occupational therapy. Never had home traction unit. He never had any injections. His past medical history significant for headaches hypertension history of fatigue and anemia. History of dizziness and fainting. History of heart murmur and shortness of breath. He never had any surgeries before. He admits smoking cigarettes 1/2 a pack a day for past 38 years. He denies drinking alcohol he drinks coffee and caffeinated beverages including soda. He denies recreational drugs. PFSH Medical History (Updated 08/03/24 @ 13:38 by Mikael Carpio PA-C) HTN (hypertension) HLD (hyperlipidemia) History of pneumothorax Nicotine dependence, cigarettes, uncomplicated GERD (gastroesophageal reflux disease) Iron deficiency anemia CHEYANNE (generalized anxiety disorder) SNHL (sensorineural hearing loss) Surgical History History of chest tube placement History of tonsillectomy History of biopsy Family History Father Heart attack, Onset Age: 54 Substance use disorder Mother Cancer of kidney Paternal Aunt Mental health disorder Substance use disorder Social History (Updated 03/02/24 @ 13:44 by Mikael Carpio PA-C) Housing: Apartment Alcohol intake: current Alcohol intake frequency: a few times a month Patient Tobacco Use Status: Current everyday Tobacco user Tobacco use type: Cigarette Cigarettes Per Day: 11 Years Smoked: (onset 16yo, 1ppd x 36yrs, 35pyh) e-Cigarette/Vaping Use: Never Used Second Hand Smoke Exposure: Yes service: No Current occupational status: employed 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 Cognitive needs: No Hearing needs: No Vision needs: Yes (glasses) Review of Systems Const All systems reviewed & are unremarkable except as noted in HPI and below ENT Reports Normal hearing present Card Reports no additional complaints Resp Reports no additional complaints GI Reports no additional complaints Reports no additional complaints Musc Reports as per HPI Neuro Reports no additional complaints, Reports Normal hearing present, Denies Abnormal speech present and Denies Sensory deficit (Neuro) Psych Reports no additional complaints Endo Reports no additional complaints Jorge/Lymph Reports no additional complaints Physical Exam Vital Signs: Last Vital Signs Pulse 90 08/16/24 09:56 Resp 16 08/16/24 09:56 BP 110/70 08/16/24 09:56 Pulse Ox 97 08/16/24 09:56 Oxygen Delivery Method Room Air 08/16/24 09:56 BMI result Body Mass Index 25.6 Const General: no acute distress, well developed, alert, awake and Physically active; No acute distress Nutritional Appearance: average body habitus Orientation/consciousness: patient oriented x3 Limitations: no limitations Eyes General: appearance normal, both eyes and all related structures Pupils: Equal, round and reactive pupils present EOM: EOMs intact bilaterally Neck Neck: Yes full ROM Chest Chest palpation & inspection: normal inspection of the chest Resp Effort & Inspection: normal respiratory effort, able to speak in complete sentences, normal respiratory pattern, no audible wheezes and no cough Cardio Jugular venous distension: no JVD GI Inspection: Yes normal to inspection Back/Spine/Pelvis Other: Able to stand on bilateral tiptoes in bilateral heels. Able to flex himself backwards but not forward very severe pain initiates right away. Valsalva maneuver is positive for pain increase. Severino test is equivocal bilaterally. Pelvic compression and pelvic distraction tests are negative. SLR is negative bilaterally. Denies pain radiation into bilateral lower extremities. Neuro General: patient oriented x3 and gait normal Cranial nerves: Yes CN's II-XII intact bilaterally, Yes Equal, round and reactive pupils present, Yes Normal hearing present and Yes Ability to bilaterally elevate shoulders present Speech: No Abnormal speech present Gait exam (Neuro): Normal gait present Motor exam (neuro): 5/5 motor strength present throughout Sensory Exam: No Sensory deficit (Neuro) Extrem General: No pedal edema Psych Speech and movement: Normal speech and movement present Affect: normal affect Attitude: cooperative Thought process: Normal thought process present Thought content: Normal thought content present Insight: Good insight present (Psych) Judgement: Good judgement present (Psych) Assessment & Plan Assessment & Plan (1) Low back pain: Code(s): M54.50 - Low back pain, unspecified Category: Medical Plan This patient pain is still can not be considered chronic, it is at the best is subacute. He tried NSAIDs with minimal results. I recommended him that we will start to treat him with conservative measures 1st. I will send him for physical therapy at [facility] core. The diagnosis will be low back pain. I also describing baclofen 10 mg t.i.d.. I recommended him to monitor his blood pressure while on baclofen. I also recommended him to consider side effects if side effects occur let us know. When his x-ray will be ready and physical therapy completed we will meet in 6 weeks and we will discuss if it is still necessary further treatment for his lower back pain. Orders: Orders PT Evaluation and Treatment Today M54.50 - Low back pain, unspecified Medications: New baclofen Monitor your blood pressure while on baclofen once a day. 10 mg PO TID 90 tabs 6RF 30 days Coding Level of Care Code New Pt Level 3 (33705) Diagnoses Low back pain M54.50
[2024-08-16 09:56] VITALS: BP 110/70; PULSE 90; RESP 16; O2SAT 97; BMI 25.6
== END 2024-08-16 10:16 | disposition home or self-care (01) ==
PROVIDERS: PCP Physician Assistant; Referring Provider Physician Assistant; Visit Provider Anesthesiology
DX: M54.50 Low back pain, unspecified (principal)
CPT/HCPCS: 99203

== ENCOUNTER → 2024-08-16 09:42 | Outpatient (BNVA) | payer OTHER, SELFPAY | PROVIDERS: PCP Physician Assistant; Referring Provider Physician Assistant; Visit Provider Anesthesiology ==

== ENCOUNTER 2024-09-27 10:37 | Outpatient (AMB) | payer OTHER, SELFPAY ==
--- NOTE | 2024-09-27 10:38 | A.OFFVIS_ITS ---
Vital Signs 09/27/24 10:46 Height 5 ft 9 in Weight 172 lb 6 oz BMI 25.5 BP 125/68 Blood Pressure Location Rt brachial Position Sitting Respiration 16 Pulse 97 Pulse Source Pulse Oximeter Pulse Oximetry (%) 97 Oxygen Delivery Method Room Air Intake Visit Reasons: 6 Week f/u /discuss xray Intake Note: Patient comes in to discuss xray results. reports pain 03/05. Allergies varenicline [From Chantix] Adverse Reaction (Intermediate, Verified 09/27/24 10:47) mood changes HPI Comments Details: Rodrigo Continues to endorse pain in the lower back. He went for physical therapy on my order, he had 1 evaluation session and he tried home exercise p jd. He reported that for treatment sessions scheduled on each Friday for the month of September. He reports no side effects on baclofen he was prescribed last time. He denies any help from baclofen. I will increase the dose today for baclofen to be 20 milligrams/mL. His x-ray is not demonstrating any free flags, there is L5-S1 spondylolisthesis, there is L5-S1 sclerosis of the endplates. He endorses today that flexing forward as well as flexing backwards aggravate his pain equally. Most of the pain he reports is when he is trying to get out of the car. His pain started gradually 2 and 1/2 months ago. No inciting events. Pain is aggravated with activities. He reports that flexing forward hurts him more than flexing backwards. He reports that he works full-time and she performs very often torso twisting but not heavy lifting or sharp bending. Movements aggravate his pain heat applications and ibuprofen oral medication makes his pain better. The pain is most severe at night and in the evening. The least severe in the morning. His past medical history significant for headaches hypertension history of fatigue and anemia. History of dizziness and fainting. History of heart murmur and shortness of breath. He never had any surgeries before. He admits smoking cigarettes 1/2 a pack a day for past 38 years. He denies drinking alcohol he drinks coffee and caffeinated beverages including soda. He denies recreational drugs. [facility] Medical History (Updated 08/03/24 @ 13:38 by Mikael Carpio PA-C) HTN (hypertension) HLD (hyperlipidemia) History of pneumothorax Nicotine dependence, cigarettes, uncomplicated GERD (gastroesophageal reflux disease) Iron deficiency anemia CHEYANNE (generalized anxiety disorder) SNHL (sensorineural hearing loss) Surgical History History of chest tube placement History of tonsillectomy History of biopsy Family History Father Heart attack, Onset Age: 54 Substance use disorder Mother Cancer of kidney Paternal Aunt Mental health disorder Substance use disorder Social History (Updated 03/02/24 @ 13:44 by Mikael Carpio PA-C) Housing: Apartment Alcohol intake: current Alcohol intake frequency: a few times a month Patient Tobacco Use Status: Current everyday Tobacco user Tobacco use type: Cigarette Cigarettes Per Day: 11 Years Smoked: (onset 16yo, 1ppd x 36yrs, 35pyh) e-Cigarette/Vaping Use: Never Used Second Hand Smoke Exposure: Yes service: No Current occupational status: employed Current occupation: [employer] Cognitive needs: No Hearing needs: No Vision needs: Yes (glasses) Review of Systems Const All systems reviewed & are unremarkable except as noted in HPI and below ENT Reports Normal hearing present Neuro Reports Normal hearing present, Denies Abnormal speech present and Denies Sensory deficit (Neuro) Physical Exam Const General: no acute distress, well developed, alert, awake and Physically active; No acute distress Nutritional Appearance: average body habitus Orientation/consciousness: patient oriented x3 Limitations: no limitations Eyes General: appearance normal, both eyes and all related structures Pupils: Equal, round and reactive pupils present EOM: EOMs intact bilaterally Neck Neck: Yes full ROM Chest Chest palpation & inspection: normal inspection of the chest Resp Effort & Inspection: normal respiratory effort, able to speak in complete sentences, normal respiratory pattern, no audible wheezes and no cough Cardio Jugular venous distension: no JVD GI Inspection: Yes normal to inspection Back/Spine/Pelvis Other: Able to stand on bilateral tiptoes in bilateral heels. Able to flex himself backwards but not forward very severe pain initiates right away. Valsalva maneuver is positive for pain increase. Severino test is equivocal bilaterally. Pelvic compression and pelvic distraction tests are negative. SLR is negative bilaterally. Denies pain radiation into bilateral lower extremities. Neuro General: patient oriented x3 and gait normal Cranial nerves: Yes CN's II-XII intact bilaterally, Yes Equal, round and reactive pupils present, Yes Normal hearing present and Yes Ability to bilaterally elevate shoulders present Speech: No Abnormal speech present Gait exam (Neuro): Normal gait present Motor exam (neuro): 5/5 motor strength present throughout Sensory Exam: No Sensory deficit (Neuro) Extrem General: No pedal edema Psych Speech and movement: Normal speech and movement present Affect: normal affect Attitude: cooperative Thought process: Normal thought process present Thought content: Normal thought content present Insight: Good insight present (Psych) Judgement: Good judgement present (Psych) Results Reviewed Results Reviewed: X-ray lumbar spine 08/04/2024. FINDINGS: S-shaped curvature of the lumbar spine. Endplate sclerosis at the L5-S1. Grade 1 anterolisthesis L5-S1. No lytic or blastic lesions. Calcified plaques, vascular. Assessment & Plan Assessment & Plan (1) Low back pain: Code(s): M54.50 - Low back pain, unspecified Category: Medical Plan Rodrigo will continue physical therapy. He will be prescribed today 20 mg baclofen p.o. t.i.d. this is increased from 10 mg baclofen she was prescribed last time. After he will complete his physical therapy and if his pain is not better I will send him for the MRI of the lumbar spine. Sclerosis of the endplates L5-S1 could be vertebra genic pain syndrome. Medial branch blocks could be tried to diagnose the pain of this patient as well. Medications: New baclofen 20 mg PO TID 30 days 90 tabs 6RF Discontinued baclofen Monitor your blood pressure while on baclofen once a day. Discontinued Reason: Doctor's Order 10 mg PO TID 30 days 90 tabs 6RF Patient Instructions: I here by testify that I spent 35 minutes in conversation with this patient as well as evaluating his diagnostic studies evaluating his participation in physical therapy planning his care and organizing this note. Coding Level of Care Code Est Pt Level 4 (82354) Diagnoses Low back pain M54.50
[2024-09-27 10:46] VITALS: BP 125/68; PULSE 97; RESP 16; O2SAT 97; BMI 25.5
== END 2024-09-27 11:02 | disposition home or self-care (01) ==
PROVIDERS: PCP Physician Assistant; Visit Provider Anesthesiology
DX: M54.50 Low back pain, unspecified (principal)
CPT/HCPCS: 99214

== ENCOUNTER 2024-09-28 10:45 | Outpatient (RCR) | payer OTHER, SELFPAY ==
--- NOTE | 2024-09-13 17:22 | MHC.PT.EP ---
[facility] [place] Office [place] Office [place] Office [address] Mercedes Medina [address] [phone] F: [phone] F: [phone] F: [phone] F: [phone] Physical Therapy Plan of Care Date of Evaluation: 09/13/24 Date of Surgery: N/A Diagnosis: low back pain (RL) Assessment: pt is a 54 y/o male presenting to physical therapy w/ referring diagnosis of low back pain. Xray imaging (+) for grade 1 L5-S1 anterolisthesis. Impairments include pain, decreased range of motion, decreased strength, impaired functional mobility, impaired postural awareness, and altered ambulation mechanics. pt is a good candidate for skilled PT due to age, potential remediation of impairments, typical disease/condition progression and prognosis, comorbidities, and motivation. pt would benefit from skilled PT intervention to provide a tailored strengthening and stretching exercise program, functional training, gait training, postural re-training, neuromuscular re-education, modalities as needed for pain, equipment safety demonstration. Frequency and Duration: The patient will be seen 2x/wk for 4 wks Short Term Goals: pt will be I w/ HEP to promote self-management of condition. pt will demo proper sitting posture w/ lumbar roll to promote neutral spine. Halfway Goals: pt will report a statistically significant improvement in self-reported outcome measure, Manny, to promote return to PLOF. pt will demo proper lifting mechanics x5 reps w/ 15# to promote neutral spine w/ director workforce management. Treatment Plan: Modalities to reduce pain, spasms and effusion. Manual therapy to restore motion and function. Therapeutic exercise to improve strength and flexibility. Neuromuscular re-education for posture and balance. Therapeutic activities to return to functional activities of daily living. Electronically signed by: Nasima Bey PT, DPT Please sign and return to therapist. Thank you for your referral.
--- NOTE | 2024-10-28 09:34 | MHC.PT.DC ---
[facility] [place] [facility] [place] Office [place] Office [address] Mercedes Medina 140 [facility] [phone] F: [phone] F: [phone] F: [phone] F: [phone] Physical Therapy Discharge Report Diagnosis: low back pain (RL) Date of Surgery: N/A Date of Evaluation: 09/13/24 Date of Discharge: 10/28/24 Treatments to Date: 2 Cancellations to Date: 1 No Shows to Date: 2 Discharge Status: Visit Non-compliance Discharge Summary: The patient overall only attended his initial evaluation and one follow-up appointment. He was given a core and pelvic stabilization home exercise program; however, he had difficulty performing these exercises correctly on his own. I encouraged him to trial a back brace for work-related tasks given his anterolisthesis. I did not emphasize wearing it for home activities. He no showed his last two scheduled appointments and is discharged for non-compliance. Electronically signed by: Nasima Bey PT, DPT Please sign and return to therapist. Thank you for your referral.
== END 2024-10-28 09:34 | disposition home or self-care (01) ==
LOC: HO.PT 10:45
PROVIDERS: PCP Physician Assistant; Visit Provider Anesthesiology
DX: M54.50 Low back pain, unspecified (principal)
CPT/HCPCS: 97110; 97140; 97162; 97530

== ENCOUNTER 2025-01-31 11:31 | Outpatient (REF) | payer OTHER, SELFPAY ==
[2025-01-31 12:02] LABS: Hematocrit 42.4 % (42.0-52.0); Hemoglobin 14.4 g/dl (14.0-18.0); Mean Corpuscular Volume 91.2 fL (80.0-98.0); Mean Platelet Volume 9.5 fL (9.4-12.4); Platelet Count 230 X10*3/uL (160-400); Red Blood Count 4.65 X10*6/uL (4.60-5.80); Red Cell Distribution Width 15.6 % (11.0-16.0); White Blood Count 6.2 X10*3/uL (4.8-10.8)
[2025-01-31 13:01] LABS: Alanine Aminotransferase 16 U/L (0-40); Albumin Level 4.1 g/dL (3.5-5.0); Anion Gap 10 (12-20); Aspartate Amino Transferase 22 U/L (5-37); Bilirubin Total 0.4 mg/dL (0.0-1.0); Blood Urea Nitrogen 11 mg/dL (9-16); Calcium 9.3 mg/dL (8.4-10.2); Carbon Dioxide 26 mmol/L (22-29); Chloride 105 mmol/L (96-108); Cholesterol 165 mg/dL (<200); Estimated Glomerular Filt Rate > 60; Glucose Fasting 92 mg/dL (60-99); HDL Cholesterol 41 mg/dL (>40); Iron 53 mcg/dL (45-160); LDL Cholesterol Calculated 103 mg/dL (<100); Percent Iron Saturation 15 % (15-50); Potassium 4.2 mmol/L (3.3-5.1); Sodium 137 mmol/L (135-145); Total Iron Binding Capacity 344 mcg/dL (228-428); Total Protein 6.9 g/dL (6.5-8.0); Triglycerides 107 mg/dL (<150); Unsaturated Iron Binding 291 ug/dL
[2025-01-31 13:02] LABS: Prostate Specific Antigen Scr 0.54 ng/mL (<0.05-4.0)
[2025-01-31 13:47] LABS: Alkaline Phosphatase 49 U/L (39-117)
== END 2025-01-31 11:32 | disposition home or self-care (01) ==
LOC: HO.LAB 11:31
PROVIDERS: PCP Physician Assistant; Visit Provider Physician Assistant
DX: D50.9 Iron deficiency anemia, unspecified (principal); E78.2 Mixed hyperlipidemia; Z12.5 Encounter for screening for malignant neoplasm of prostate; I10 Essential (primary) hypertension
CPT/HCPCS: 36415; 80053; 80061; 83540; 84153; 85027

== ENCOUNTER 2025-03-08 13:15 | Outpatient (REF) | payer OTHER, SELFPAY ==
--- NOTE | ~2025-03-08 | XR_ITS ---
EXAMINATION: XR CHEST 2 VIEWS HISTORY: J40 - Bronchitis, not specified as acute or chronic COMPARISON: Comparison is made with the prior examination dated 12/10/2023. FINDINGS: PA and lateral views of the chest are submitted. The lungs are expanded and clear. There is no pleural effusion, pneumothorax, or pulmonary vascular congestion. The heart is normal in size there is a small to moderate hiatal hernia. The bones are intact. XR/XR chest 2V IMPRESSION: Small to moderate hiatal hernia. No acute cardiopulmonary abnormality. Electronically signed by: Charles Madison MD 03/08/2025 03:56 PM EDT
== END 2025-03-08 13:16 | disposition home or self-care (01) ==
LOC: HO.XRAY 13:15
PROVIDERS: PCP Physician Assistant; Visit Provider Physician Assistant
DX: Z00.00 Encounter for general adult medical examination without abnormal findings (principal); H90.3 Sensorineural hearing loss, bilateral; J40 Bronchitis, not specified as acute or chronic; E78.2 Mixed hyperlipidemia; I10 Essential (primary) hypertension; K44.9 Diaphragmatic hernia without obstruction or gangrene; F41.1 Generalized anxiety disorder; R51.9 Headache, unspecified; F17.210 Nicotine dependence, cigarettes, uncomplicated; Z79.899 Other long term (current) drug therapy
CPT/HCPCS: 71046; 96127

== ENCOUNTER 2025-03-08 13:15 | Outpatient (AMB) | payer OTHER, SELFPAY ==
--- NOTE | 2025-03-08 13:22 | A.OFFPC_ITS ---
Vital Signs 03/08/25 13:23 Height 5 ft 9 in Weight 176 lb 4 oz BMI 26.0 BP 112/78 Blood Pressure Location Lt brachial Position Sitting Pulse 94 Pulse Source Pulse Oximeter Temp 97.1 F Temp Source Temporal Artery Scan Pulse Oximetry (%) 98 Oxygen Delivery Method Room Air Intake Visit Reasons: PE Sign Hanger Required: No Accompanied by: Self / Same As Patient Allergies varenicline [From Chantix] Adverse Reaction (Intermediate, Verified 03/08/25 13:38) mood changes Medication List - Last Reconciled 03/08/25 by Mikael Carpio PA-C baclofen 20 mg PO TID 30 days clonazepam 0.5 mg PO BID 30 days ferrous sulfate 325 mg PO BID 30 days lisinopril 10 mg PO DAILY multivitamin 1 tab PO DAILY nicotine (polacrilex) 2 mg buccal Q8H PRN 30 days pantoprazole 40 mg PO DAILY 90 days simvastatin 20 mg PO BEDTIME 90 days Tobacco use date assessed: 03/08/25 Dental Screening Dental Screen Date: 03/08/25 Did you have a dental visit in the last 12 months?: Yes Did you have a dental problem in the last 6 months where you did not have access to dental care?: No Was dental information given to patient?: Patient has dentist HPI PE HPI Details Patient is a 54 year-old here today for a routine annual physical.. Patient has a past medical history significant for hyperlipidemia, GERD, tobacco use disorder, hypertension. Concerns--> He previously experienced discomfort from a large noted hiatal hernia and was advised to consult a thoracic surgeon for possible intervention. He had reported respiratory symptoms, leading to an urgent care visit diagnosing bronchial thickening, likely indicative of chronic bronchitis. Also reports a newly developed head pain over the last month and a half, described as a throbbing sensation, which has gradually become more frequent, though not disrupting sleep or associated with any known physical trauma. .. Hyperlipidemia: Most recent fasting lipid panel showing borderline high total cholesterol and improved LDL. Continues on statin therapy without any side effect. .. Hypertension:? Patient's blood pressure acceptable today in office. He continues on lisinopril 10 mg with good effect on his blood pressure. ... Smoker:? Has recently got CT chest with lung cancer screening program and no nodules found. He continues to smoke a half pack of cigarettes. He does report picking a quit date of June 25 . Of note the large hiatal hernia was noted on CT lung in 2022 .. Generalized anxiety disorder:? He reports in the past seeing his psychiatrist whom has started him on clonazepam 0.5 mg twice a day.? He has been on benzodiazepines over the last 15 years with good effect.? He uses clonazepam once to twice a day as needed.? He does report having anxiety severe enough to cause him to be out of work. colonoscopy: Cologuard done in 4-, repeat 3 years Vaccines: Declines COVID Vaccine or flu, needs PCV-declines, up-to-date with tetanus vaccine , considering shingrex Laboratory Tests 08/28/23 02/24/24 01/31/25 12:47 12:18 11:48 RBC 4.65 Hgb 14.4 Creatinine 0.91 Iron 35 L 53 Cholesterol 224 H 190 165 LDL Cholesterol, C alc 104 H 103 H PSA Screen 0.54 PFSH Medical History HTN (hypertension) HLD (hyperlipidemia) History of pneumothorax Nicotine dependence, cigarettes, uncomplicated GERD (gastroesophageal reflux disease) Iron deficiency anemia CHEYANNE (generalized anxiety disorder) SNHL (sensorineural hearing loss) Surgical History History of chest tube placement History of tonsillectomy History of biopsy Family History Father Heart attack, Onset Age: 54 Substance use disorder Mother Cancer of kidney Paternal Aunt Mental health disorder Substance use disorder Social History Housing: Apartment Alcohol intake: current Alcohol intake frequency: former alcohol drinker Patient Tobacco Use Status: Current everyday Tobacco user Tobacco use type: Cigarette Cigarettes Per Day: 11 Years Smoked: (onset 16yo, 1ppd x 36yrs, 35pyh) e-Cigarette/Vaping Use: Never Used Second Hand Smoke Exposure: Yes service: No Current occupational status: employed 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 1. Little interest or pleasure in doing things: not at all 2. Feeling down, depressed, or hopeless: not at all 3. Trouble falling or staying asleep, or sleeping too much: not at all 4. Feeling tired or having little energy: not at all 5. Poor appetite or overeating: not at all 6. Feeling bad about yourself - or that you are a failure or have let yourself or your family down: not at all 7. Trouble concentrating on things, such as reading the newspaper or watching television: not at all 8. Moving or speaking so slowly that other people could have noticed. Or the opposite - being so fidgety or restless that you have been moving around a lot more than usual: not at all 9. Thoughts that you would be better off or of hurting yourself in some way: not at all Total score: 0 Depression Screening Interpretation: Negative Depression Screening Done: Yes 27713 - PHQ-9 Billing: Yes Source: Developed by Drs. Charles Evans, Marga Verde, Angel Hughes and colleagues, with an educational jesu from [employer]. Thrive Questionnaire Date Thrive assessed: 03/08/25 I am a: Patient What is your living situation today?: I choose not to answer this question Within the past 12 months, did the food you bought not last and you didn't have the money to get more?: I choose not to answer this question Within the past 12 months, did you worry whether your food would run out before you got money to buy more?: I choose not to answer this question Do you have trouble paying for medicines?: I choose not to answer this question Do you have trouble getting transportation to medical appointments?: I choose not to answer this question Do you have trouble paying your heating and electricity bill?: I choose not to answer this question Do you have trouble taking care of your child, family member or friend?: I choose not to answer this question Do you have trouble with day-to-day activities such as bathing, preparing meals, shopping, managing finances, etc.?: I choose not to answer this question Are you currently unemployed and looking for a job?: I choose not to answer this question Are you interested in more education?: I choose not to answer this question Please select the resources that you would like help with: None Currently or been in a relationship where the following occur: I choose not to answer THRIVE Score: 0 AUDIT C Alcohol Use Questionnaire (AUDIT-C) 1. How often do you have a drink containing alcohol?: Never 3. How often do you have six or more drinks on one occasion?: Never Total Score: 0 CHEYANNE-7 AMB Questionnaire CHEYANNE-7 Date CHEYANNE - 7 assessed: 03/08/25 Feeling nervous, anxious, or on edge: 1 = Several days Not being able to stop or control worryin = Not at all Worrying too much about different things: 0 = Not at all Trouble relaxin = Not at all Being so restless that it is hard to sit still: 0 = Not at all Becoming easily annoyed or irritable: 0 = Not at all Feeling afraid as if something awful might happen: 0 = Not at all Total CHEYANNE-7 score (0-4 normal; 5-9 mild; 10-14 moderate; 15-21 severe): 1 Source: Developed by Drs. Charles Evans, Marga eVrde, Angel Hughes and colleagues, with an educational jesu from [employer]. CHEYANNE-7 Assessment Billing CHEYANNE-7 Assessment Tool: CHEYANNE-7 Assessment 34145 Review of Systems Const Denies body aches, Denies chills, Denies excessive sweating, Denies fatigue, Denies fever(s) and Denies headache(s) Eyes Denies blurry vision ENT Denies dysphagia, Denies vertigo, Denies dizziness, Denies headache(s), Denies hearing loss and Denies tinnitus Card Denies chest pain, Denies chest pain with activity, Denies syncope, Denies irregular heart rhythm and Denies dyspnea Resp Denies chest congestion, Denies cough, Denies hemoptysis, Denies dyspnea and Denies wheezing GI Denies abdominal pain, Denies melena, Denies hematochezia, Denies coffee ground emesis, Denies dysphagia, Denies diarrhea, Denies nausea and Denies vomiting Denies difficulty urinating, Denies dysuria, Denies urinary frequency, Denies urinary hesitancy and Denies urinary urgency Musc Denies arthralgias, Denies limited range of motion, Denies muscle cramps and Denies muscle weakness Skin/Breast Denies rash and Denies skin ulcer Neuro Denies Abnormal speech present, Denies confusion, Denies vertigo, Denies dizziness, Denies syncope, Denies headache(s), Denies memory loss and Denies seizure-like activity Psych Denies anxiety, Denies confusion, Denies depression, Denies memory loss, Denies panic attacks and Denies paranoia Endo Denies excessive sweating, Denies fatigue, Denies flushing, Denies polydipsia and Denies polyuria Aller/Immun Denies wheezing Physical exam (Primary Care) Vital Signs: Last Vital Signs Temp 97.1 F 03/08/25 13:23 Pulse 94 03/08/25 13:23 BP 112/78 03/08/25 13:23 Pulse Ox 98 03/08/25 13:23 Oxygen Delivery Method Room Air 03/08/25 13:23 BMI result Body Mass Index 26.0 Tobacco/Smoking Status: Tobacco use Status Tobacco use date assessed 03/08/25 03/08/25 13:24 Patient Tobacco Use Status Current everyday Tobacco 03/08/25 13:23 Tobacco use type Cigarette 03/08/25 13:23 e-Cigarette/Vaping Use Never Used 03/08/25 13:23 Are you ready to quit: Yes Tobacco cessation counseling provided: Yes Items discussed: Nicotine replacement Relapse Prevention: discussed the importance of a supportive environment, discussed negative mood or depression after quitting, weight gain after smoking is common and discussed dietary, exercise and/or lifestyle changes Number of minutes spent counselin CPT code: 83037 - 4-10 Minutes PHQ-9: PHQ-9 Score PHQ-9: Total score 0 03/08/25 13:23 Depression Screening Interpretation: Negative Thrive Assessment: Date of Thrive Assessment Date Thrive assessed 03/08/25 03/08/25 13:23 Currently or been in a relationship where the following occur: I choose not to answer Const General: cooperative, comfortable, no acute distress, alert and awake; No confusion Orientation/consciousness: oriented to person, oriented to place, patient oriented x3 and No confusion HENMT Head: Yes normocephalic Ears: external ears normal and TM's normal bilaterally Face and sinus: No sinus tenderness Mouth: Normal oral and palatal mucosa present and tongue normal Teeth and gingiva: dentition normal and gingiva normal Throat: Yes posterior oropharynx normal, Yes tonsils normal and Yes uvula midline Eyes Conjunctivae: conjunctivae normal Sclerae: sclerae normal Pupils: Equal, round and reactive pupils present EOM: EOMs intact bilaterally Direct Ophthalmoscopy: No no photophobia Neck Neck: Yes no lymphadenopathy, No tender and Yes no JVD Thyroid: Thyroid normal Carotids: no bruits Chest Chest palpation & inspection: no tenderness Resp Effort & Inspection: normal respiratory effort, no audible wheezes, not labored and no stridor Auscultation: no crackles, no rales, no rhonchi and no wheezes Cardio Jugular venous distension: no JVD Rate: regular rate, not bradycardic and not tachycardic Rhythm: regular rhythm Bruits: no carotid bruits Peripheral pulses: Peripheral pulses 2+ throughout GI Inspection: Yes normal to inspection, No abdominal wall ecchymosis and No visible herniation Palpation (GI): Soft to palpation, nontender, no guarding, not rigid and No hepatosplenomegaly present Auscultation: normoactive bowel sounds General: Yes no CVA tenderness Back/Spine/Pelvis Back: no CVA tenderness and No back tenderness Cervical Spine: cervical ROM normal Thoracic/Lumbar Spine: thoracic and lumbar spine normal to inspection, straight leg raise negative bilaterally, No thoraco-lumbar ROM limited and No lumbar spinal tenderness Skin Lesions: no lesions Rashes: no rashes Wounds: no wounds Neuro General: oriented to person, oriented to place, patient oriented x3, CN's II-XI intact bilaterally and No confusion Cranial nerves: Yes Equal, round and reactive pupils present and Yes Normal accommodation reflex present Cognition (Neuro): normal cognition Speech: No Abnormal speech present Gait exam (Neuro): Normal gait present Motor exam (neuro): 5/5 motor strength present throughout Extrem Right upper extremity: full ROM; no cyanosis Left upper extremity: full ROM; no cyanosis Right lower extremity: no edema Left lower extremity: no edema Psych Appearance: grossly normal Mental Status: mental status grossly normal Affect: normal affect Attitude: cooperative Thought process: Normal thought process present Coding Level of Care Code Est Pt Prev Care 40-64y(69488) Diagnoses Annual physical exam Z00.00 Sensorineural hearing loss (SNHL) of both ears H90.3 Laterality: bilateral Bronchitis J40 Mixed hyperlipidemia E78.2 Hyperlipidemia type: mixed hyperlipidemia Primary hypertension I10 Hypertension type: primary hypertension Esophageal hernia K44.9 CHEYANNE (generalized anxiety disorder) F41.1 Nicotine dependence, cigarettes, uncomplicated F17.210 Nonintractable episodic headache, unspecified headache type R51.9 Headache type: unspecified Headache chronicity pattern: episodic headache Intractability: not intractable Additional Codes CHEYANNE-7 Assessment Billing - CHEYANNE-7 Assessment Tool: CHEYANNE-7 Assessment 38212 ([id number]) PHQ-9 - 83344 - PHQ-9 Billing: Yes ([id number]) Vital Signs *Quality* - CPT code: 51319 - 4-10 Minutes ([id number]) Assessment & Plan Assessment & Plan (1) Annual physical exam: Code(s): Z00.00 - Encounter for general adult medical examination without abnormal findings Category: Medical Plan: As per HPI (2) SNHL (sensorineural hearing loss): Code(s): H90.5 - Unspecified sensorineural hearing loss Category: Medical Qualifiers: Laterality: bilateral Qualified Code(s): H90.3 - Sensorineural hearing loss, bilateral Plan: Patient requesting hearing exam (3) Bronchitis: Code(s): J40 - Bronchitis, not specified as acute or chronic Category: Medical Plan: A follow-up chest x-ray is arranged to evaluate bronchial thickening noted previously. Encouragement of smoking cessation as a critical step in management. (4) HLD (hyperlipidemia): Code(s): E78.5 - Hyperlipidemia, unspecified Category: Medical Qualifiers: Hyperlipidemia type: mixed hyperlipidemia Qualified Code(s): E78.2 - Mixed hyperlipidemia Plan: Most recent lipid panel showing good control of his total cholesterol and LDL. He will continue his current dose of statin with goal LDL to remain below 130 (5) HTN (hypertension): Code(s): I10 - Essential (primary) hypertension Category: Medical Qualifiers: Hypertension type: primary hypertension Qualified Code(s): I10 - Essential (primary) hypertension Plan: Patient's blood pressure acceptable today in office. Will continue his current dose of lisinopril. Goal blood pressures to remain below 140/90 (6) Esophageal hernia: Code(s): K44.9 - Diaphragmatic hernia without obstruction or gangrene Category: Medical Plan: Referral to a thoracic surgeon for evaluation and potential corrective surgery . He does report having left-sided chest pain and discomfort that has been worsening. Unclear if this is related to his large hiatal hernia. The surgeon will discuss surgical intervention benefits, risks, and outcomes. (7) CHEYANNE (generalized anxiety disorder): Code(s): F41.1 - Generalized anxiety disorder Category: Medical Plan: Patient continues with use of clonazepam 0.5 mg b.i.d. with good effect on reducing his anxiety. (8) Nicotine dependence, cigarettes, uncomplicated: Comment: (current smoker - onset 16yo, 1ppd x 37yrs, now 1/2ppd - 35pyh) Code(s): F17.210 - Nicotine dependence, cigarettes, uncomplicated Category: Medical Plan: Patient does understand he needs to quit smoking. He picked a quit date of June 25 test quit smoking. He would like nicotine lozenges to help him quit. (9) Head pain: Code(s): R51.9 - Headache, unspecified Category: Medical Qualifiers: Headache type: unspecified Headache chronicity pattern: episodic headache Intractability: not intractable Qualified Code(s): R51.9 - Headache, unspecified Plan: Consideration of imaging to further assess unexplained head pain. Orders: Orders XR chest 2V Today J40 - Bronchitis, not specified as acute or chronic CT head/brain wo IV con Today R51.9 - Headache, unspecified Referrals Thoracic/General Surgery Referral K44.9 - Diaphragmatic hernia without obstruction or gangrene Speech and Hearing Referral H90.3 - Sensorineural hearing loss, bilateral Medications: New ibuprofen 800 mg PO Q8H 30 days PRN 90 tabs 1RF pain M54.50 - Low back pain, unspecified Refilled clonazepam 0.5 mg PO BID 30 days 60 tabs 3RF F41.1 - Generalized anxiety disorder lisinopril 10 mg PO DAILY 90 tabs 1RF I10 - Essential (primary) hypertension nicotine (polacrilex) 2 mg buccal Q8H 30 days PRN 81 ea 0RF nicotine cravings F17.210 - Nicotine dependence, cigarettes, uncomplicated pantoprazole 40 mg PO DAILY 90 days 90 tabs 1RF K21.9 - Gastro-esophageal reflux disease without esophagitis simvastatin 20 mg PO BEDTIME 90 days 90 tabs 1RF E78.2 - Mixed hyperlipidemia pantoprazole 40 mg PO DAILY 90 days 90 tabs 1RF K21.9 - Gastro-esophageal reflux disease without esophagitis lisinopril 10 mg PO DAILY 90 tabs 1RF I10 - Essential (primary) hypertension clonazepam 0.5 mg PO BID 30 days 60 tabs 3RF F41.1 - Generalized anxiety disorder nicotine (polacrilex) 2 mg buccal Q8H 30 days PRN 81 ea 0RF nicotine cravings F17.210 - Nicotine dependence, cigarettes, uncomplicated simvastatin 20 mg PO BEDTIME 90 days 90 tabs 1RF E78.2 - Mixed hyperlipidemia
[2025-03-08 13:23] VITALS: BP 112/78; PULSE 94; TEMP 36.2; O2SAT 98; BMI 26.0
--- OUTSIDE RECORDS SUMMARY | 2025-03-08 14:22 | XMS_ITS | Continuity of Care Document ---
Author Organization [facility] Address [address] [place] [id number] Problems Condition ICD9 code ICD10 code SNOMED code Start Date End Date S tatus Encounter for screening for other metabolic disorders Z13.228 Results No Results Allergies, adverse reactions, alerts No known allergies and adverse reactions Medications No administered medications reported Vital Signs No vital signs reported Social History No smoking Hx information available
== END 2025-03-08 14:05 | disposition home or self-care (01) ==
LOC: HO.HMCH 13:16
PROVIDERS: PCP Physician Assistant; Visit Provider Physician Assistant
DX: Z00.00 Encounter for general adult medical examination without abnormal findings (principal); H90.3 Sensorineural hearing loss, bilateral; J40 Bronchitis, not specified as acute or chronic; E78.2 Mixed hyperlipidemia; I10 Essential (primary) hypertension; K44.9 Diaphragmatic hernia without obstruction or gangrene; F41.1 Generalized anxiety disorder; F17.210 Nicotine dependence, cigarettes, uncomplicated; R51.9 Headache, unspecified

== ENCOUNTER → 2025-03-08 14:26 | Outpatient (BNV) | payer OTHER, SELFPAY | PROVIDERS: PCP Physician Assistant; Visit Provider Radiology Diagnostic Radiology | DX: K44.9 Diaphragmatic hernia without obstruction or gangrene (principal) | CPT/HCPCS: 71046 ==

== ENCOUNTER 2025-03-28 09:00 | Outpatient (AMB) | payer OTHER, SELFPAY ==
--- NOTE | 2025-03-28 09:10 | A.OFFVIS_ITS ---
VS Expanded 03/28/25 09:18 BP 126/70 Blood Pressure Location Rt brachial Blood Pressure Position Sitting Pulse 92 Pulse Source Pulse Oximeter Temp 97.2 F Temperature Source Temporal Artery Scan Pulse Oximetry 97 Oxygen Delivery Method Room Air Height 5 ft 9 in Weight 172 lb 9.6 oz BMI 25.5 Body Fat % 20.2 Body Fat Mass 34.8 Fat Free Mass 137.6 Visceral Fat Rating 10.0 Body Water % 55.9 Body Water Mass 96.4 Muscle Mass/Score 130.8 Basal Metabolic Rate/Score 1,794 Intake Visit Reasons: OV Diaphragmatic Hernia - Balaji SPAIN Ref. Allergies varenicline [From Chantix] Adverse Reaction (Intermediate, Verified 03/28/25 16:20) mood changes Medication List - Last Reconciled 03/28/25 by Toby Figueroa MD clonazepam 0.5 mg PO BID 30 days ibuprofen 800 mg PO Q8H PRN 30 days lisinopril 10 mg PO DAILY multivitamin 1 tab PO DAILY nicotine (polacrilex) 2 mg buccal Q8H PRN 30 days pantoprazole 40 mg PO DAILY 90 days simvastatin 20 mg PO BEDTIME 90 days HPI Comments Details: The patient is a 54-year-old male presenting with concerns related to a large hiatal hernia identified two years ago via a lung CT scan. He reports persistent GERD symptoms, worsened by certain foods, with episodes of severe regurgitation. Previously, the patient experienced a pneumothorax related to smoking, significant enough to require a chest tube. Comorbid conditions include essential hypertension, hyperlipidemia, and arthritis, managed with lisinopril, simvastatin, and ibuprofen, respectively. He has a history of intense alcohol consumption, which ceased three months ago, and remains a daily smoker of 15 cigarettes but aims to cease by May. The presence of significant GERD symptoms, coupled with a large hiatal hernia, underlines the potential need for surgical intervention. Tests reviewed: - CT Scan (two years ago): Large hiatal hernia discovered incidentally during lung CT scan. - Stress test (two years ago): Results deemed fine with no further cardiac workup noted. [facility] Medical History HTN (hypertension) HLD (hyperlipidemia) History of pneumothorax Nicotine dependence, cigarettes, uncomplicated GERD (gastroesophageal reflux disease) Iron deficiency anemia CHEYANNE (generalized anxiety disorder) SNHL (sensorineural hearing loss) Surgical History History of chest tube placement History of tonsillectomy History of biopsy Family History Father Heart attack, Onset Age: 54 Substance use disorder Mother Cancer of kidney Paternal Aunt Mental health disorder Substance use disorder Social History (Updated 03/28/25 @ 09:15 by Nia Austin [facility]) Housing: Apartment Alcohol intake: former Patient Tobacco Use Status: Current everyday Tobacco user Tobacco use type: Cigarette Cigarettes Per Day: 15 Years Smoked: (onset 16yo, 1ppd x 36yrs, 35pyh) e-Cigarette/Vaping Use: Never Used Second Hand Smoke Exposure: Yes service: No Current occupational status: employed 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 Cognitive needs: No Hearing needs: No Vision needs: Yes (glasses) Physical Exam Vital Signs: Last Vital Signs Temp 97.2 F 03/28/25 09:18 Pulse 92 03/28/25 09:18 BP 126/70 03/28/25 09:18 Pulse Ox 97 03/28/25 09:18 Oxygen Delivery Method Room Air 03/28/25 09:18 BMI result Body Mass Index 25.5 GI Inspection: Yes normal to inspection Palpation (GI): Soft to palpation Extrem Right lower extremity: normal to inspection Left lower extremity: normal to inspection Assessment & Plan Assessment & Plan (1) Paraesophageal hernia: Code(s): K44.9 - Diaphragmatic hernia without obstruction or gangrene Category: Medical Plan: We discussed the diagnosis of the large hiatal hernia and reviewed surgical treatment options, including laparoscopic repair. I explained the anatomical changes and their correlation with his symptoms. We discussed the benefits of repairing the hernia, including resolution of reflux and regurgitation symptoms. Surgery involves repositioning the stomach and securing it to prevent recurrence, using sutures without mesh unless necessary. Risks include bleeding, infection, lung complications, and potential conversion to an open procedure, although my personal experience shows favorable outcomes for laparoscopic repairs. I encouraged smoking cessation preoperatively to reduce anesthesia risks. There is an option for an endoscopic probe (MARRERO) to assess reflux severity, w hich was advised before surgery planning. I emphasized the necessity of an endoscopy prior to surgery to gauge esophageal condition and finalize surgical decisions. Patient consent and understanding were obtained.
[2025-03-28 09:18] VITALS: BP 126/70; PULSE 92; TEMP 36.2; O2SAT 97; BMI 25.5
== END 2025-03-28 16:26 | disposition home or self-care (01) ==
LOC: HO.HBS 09:01
PROVIDERS: PCP Physician Assistant; Visit Provider Surgery
DX: K44.9 Diaphragmatic hernia without obstruction or gangrene (principal)
CPT/HCPCS: 99204

== ENCOUNTER → 2025-03-28 09:00 | Outpatient (BNVA) | payer OTHER, SELFPAY | PROVIDERS: PCP Physician Assistant; Visit Provider Surgery ==

== ENCOUNTER 2025-04-20 14:19 | Outpatient (REF) | payer OTHER, SELFPAY | END 2025-04-20 14:20 | disposition home or self-care (01) | LOC: HO.SH 14:19 | PROVIDERS: Visit Provider Physician Assistant | DX: Z01.118 Encounter for examination of ears and hearing with other abnormal findings (principal); H93.293 Other abnormal auditory perceptions, bilateral | CPT/HCPCS: 92557; 92567 ==

== ENCOUNTER 2025-04-27 16:19 | Outpatient (REF) | payer OTHER, SELFPAY ==
--- NOTE | ~2025-04-27 | CT_ITS ---
EXAMINATION: CT HEAD WITHOUT CONTRAST CLINICAL INFORMATION: Headache, no trauma COMPARISON: None available. TECHNIQUE: Contiguous axial imaging was performed from the skull base to vertex without intravenous administration of contrast. This CT examination was performed using dose optimization techniques as appropriate, variously including the following: *Automated exposure control *Adjustment of mA and/or kV according to patient size (this includes techniques or standardized protocols for targeted exams where dose is matched to indication/reason for exam; i.e. extremities or head) *Use of iterative reconstruction technique DLP: 696 mGY*cm FINDINGS: There is no acute ischemic change. There is no intracranial hemorrhage. There is no mass-effect or midline shift. Basal cisterns and ventricles are within normal limits for age/cerebral volume. Orbits are symmetrical and unremarkable. Paranasal sinuses and mastoid air cells are pneumatized. There are no bony abnormalities. CT/CT head/brain wo IV con IMPRESSION: No acute intracranial abnormality. Electronically signed by: Vin Hernandez MD 04/27/2025 05:24 PM EDT
== END 2025-04-27 16:20 | disposition home or self-care (01) ==
LOC: HO.CT 16:19
PROVIDERS: PCP Physician Assistant; Visit Provider Physician Assistant
DX: R51.9 Headache, unspecified (principal)
CPT/HCPCS: 70450

== ENCOUNTER → 2025-04-27 16:22 | Outpatient (BNV) | payer OTHER, SELFPAY | PROVIDERS: PCP Physician Assistant; Visit Provider Radiology Diagnostic Radiology | DX: R51.9 Headache, unspecified (principal) | CPT/HCPCS: 70450 ==

== ENCOUNTER 2025-05-12 09:17 | Outpatient (REF) | payer OTHER, SELFPAY ==
--- NOTE | ~2025-05-12 | XR_ITS ---
EXAMINATION: XR CHEST 2 VIEWS HISTORY: R05.9 - Cough, unspecified COMPARISON: Comparison is made with the prior examination dated 03/08/2025. FINDINGS: PA and lateral views of the chest are submitted. The lungs are expanded and clear. There is no pleural effusion, pneumothorax, or pulmonary vascular congestion. The heart is normal in size. There is a small to moderate hiatal hernia.. The bones are intact. XR/XR chest 2V IMPRESSION: Small to moderate hiatal hernia. No acute cardiopulmonary abnormality. Electronically signed by: Charles Madison MD 05/12/2025 09:46 AM EDT
== END 2025-05-12 09:18 | disposition home or self-care (01) ==
LOC: HO.XRAY 09:17
PROVIDERS: PCP Physician Assistant
DX: R05.9 Cough, unspecified (principal)
CPT/HCPCS: 71046

== ENCOUNTER → 2025-05-12 09:20 | Outpatient (BNV) | payer OTHER, SELFPAY | PROVIDERS: PCP Physician Assistant; Visit Provider Radiology Diagnostic Radiology | DX: K44.9 Diaphragmatic hernia without obstruction or gangrene (principal) | CPT/HCPCS: 71046 ==

== ENCOUNTER 2025-09-05 14:28 | Outpatient (AMB) | payer OTHER, SELFPAY ==
--- NOTE | 2025-09-05 14:44 | A.OFFPC_ITS ---
Vital Signs 09/05/25 14:45 Height 5 ft 9 in Weight 170 lb 2 oz BMI 25.1 BP 100/60 Blood Pressure Location Lt brachial Position Sitting Pulse 72 Pulse Source Pulse Oximeter Temp 97.3 F Temp Source Temporal Artery Scan Pulse Oximetry (%) 97 Oxygen Delivery Method Room Air Intake Visit Reasons: f/u HTN Intake Note: Patient is here to follow up on HTN. Institutional Research Coordinator Required: No Sequins Winder: Not Required per policy Accompanied by: Self / Same As Patient Allergies varenicline (From [employer]) Adverse Reaction (Intermediate, Verified 09/05/25 14:54) mood changes Medication List - Last Reconciled 09/05/25 by Mikael Carpio PA-C clonazepam 0.5 mg PO BID 30 days ibuprofen 800 mg PO Q8H PRN 30 days lisinopril 10 mg PO DAILY multivitamin 1 tab PO DAILY nicotine (polacrilex) 2 mg buccal Q8H PRN 30 days pantoprazole 40 mg PO DAILY 90 days simvastatin 20 mg PO BEDTIME 90 days Tobacco use date assessed: 09/05/25 Dental Screening Dental Screen Date: 03/08/25 HPI f/u HTN HPI Details Patient is a 55-year-old male here today for follow-up visit. Patient has a past medical history significant for hyperlipidemia, GERD, tobacco use disorder, hypertension. Concerns--> patient reports over the last week having increase productive cough and sputum. On physical exam today does have rhonchi PLAN: Will supply patient with azithromycin and prednisone taper .. Hyperlipidemia: Most recent fasting lipid panel showing borderline high total cholesterol and improved LDL. Continues on statin therapy without any side effect. .. Hypertension:? Patient's blood pressure acceptable today in office. He continues on lisinopril 10 mg with good effect on his blood pressure. ... Smoker:? Has recently got CT chest with lung cancer screening program and no nodules found. He continues to smoke a half pack of cigarettes. He does report picking a quit date of June 25 . Of note the large hiatal hernia was noted on CT lung in 2022 .. Generalized anxiety disorder:? He reports in the past seeing his psychiatrist whom has started him on clonazepam 0.5 mg twice a day.? He has been on benzodiazepines over the last 20 years with good effect.? He uses clonazepam once to twice a day as needed.? He does report having anxiety severe enough to cause him to be out of work. Laboratory Tests 01/31/25 11:48 RBC 4.65 Hgb 14.4 Creatinine 0.91 Cholesterol 165 LDL Cholesterol, C alc 103 H PSA Screen 0.54 PFSH Medical History HTN (hypertension) HLD (hyperlipidemia) History of pneumothorax Nicotine dependence, cigarettes, uncomplicated GERD (gastroesophageal reflux disease) Iron deficiency anemia CHEYANNE (generalized anxiety disorder) SNHL (sensorineural hearing loss) Surgical History History of chest tube placement History of tonsillectomy History of biopsy Family History Father Heart attack, Onset Age: 54 Substance use disorder Mother Cancer of kidney Paternal Aunt Mental health disorder Substance use disorder Social History Housing: Apartment Alcohol intake: former Patient Tobacco Use Status: Current everyday Tobacco user Tobacco use type: Cigarette Cigarette Packs Per Day: 1 Cigarettes Per Day: 15 Years Smoked: (onset 16yo, 1ppd x 36yrs, 35pyh) e-Cigarette/Vaping Use: Never Used Second Hand Smoke Exposure: Yes service: No Current occupational status: employed 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 Cognitive needs: No Hearing needs: No Vision needs: Yes (glasses) Questionnaire Thrive Questionnaire Date Thrive assessed: 03/08/25 I am a: Patient What is your living situation today?: I choose not to answer this question Within the past 12 months, did the food you bought not last and you didn't have the money to get more?: I choose not to answer this question Within the past 12 months, did you worry whether your food would run out before you got money to buy more?: I choose not to answer this question Do you have trouble paying for medicines?: I choose not to answer this question Do you have trouble getting transportation to medical appointments?: I choose not to answer this question Do you have trouble paying your heating and electricity bill?: I choose not to answer this question Do you have trouble taking care of your child, family member or friend?: I choose not to answer this question Do you have trouble with day-to-day activities such as bathing, preparing meals, shopping, managing finances, etc.?: I choose not to answer this question Are you currently unemployed and looking for a job?: I choose not to answer this question Are you interested in more education?: I choose not to answer this question Please select the resources that you would like help with: None Currently or been in a relationship where the following occur: I choose not to answer THRIVE Score: 0 CHEYANNE-7 AMB Questionnaire CHEYANNE-7 Date CHEYANNE - 7 assessed: 03/08/25 Source: Developed by Drs. Charles Evans, Marga Verde, Angel Hughes and colleagues, with an educational jesu from [employer]. Review of Systems Const Denies headache(s) Eyes Denies loss of vision ENT Denies vertigo, Denies dizziness, Denies headache(s) and Denies sore throat Card Denies chest pain, Denies leg edema and Denies lightheadedness Resp Denies cough, Denies hemoptysis and Denies wheezing GI Denies abdominal pain, Denies melena, Denies constipation, Denies diarrhea and Denies vomiting Denies dysuria, Denies urinary frequency and Denies urinary urgency Musc Denies arthralgias, Denies joint swelling, Denies numbness and Denies tingling Neuro Denies Abnormal speech present, Denies behavioral changes, Denies vertigo, Denies dizziness, Denies headache(s), Denies loss of vision, Denies memory loss, Denies numbness and Denies tingling Psych Denies anxiety, Denies behavioral changes, Denies depression, Denies memory loss and Denies panic attacks Jorge/Lymph Denies easy bleeding and Denies easy bruising Aller/Immun Denies wheezing Physical exam (Primary Care) Vital Signs: Last Vital Signs Temp 97.3 F 09/05/25 14:45 Pulse 72 09/05/25 14:45 BP 100/60 09/05/25 14:45 Pulse Ox 97 09/05/25 14:45 Oxygen Delivery Method Room Air 09/05/25 14:45 BMI result Body Mass Index 25.1 Tobacco/Smoking Status: Tobacco use Status Tobacco use date assessed 09/05/25 09/05/25 14:50 Patient Tobacco Use Status Current everyday Tobacco 09/05/25 14:50 Tobacco use type Cigarette 09/05/25 14:50 e-Cigarette/Vaping Use Never Used 09/05/25 14:50 Are you ready to quit: No Tobacco cessation counseling provided: Yes Items discussed: Nicotine replacement Relapse Prevention: discussed the importance of a supportive environment, discussed negative mood or depression after quitting, weight gain after smoking is common and discussed dietary, exercise and/or lifestyle changes Number of minutes spent counselin CPT code: 98620 - 4-10 Minutes Thrive Assessment: Date of Thrive Assessment Date Thrive assessed 03/08/25 09/05/25 14:50 Currently or been in a relationship where the following occur: I choose not to answer Const General: healthy appearing, no acute distress, alert and awake Nutritional Appearance: well nourished Orientation/consciousness: oriented to person, oriented to place and oriented to time HENMT Ears: TM's normal bilaterally General nose exam: Normal nasal mucous membranes and turbinates present Eyes Conjunctivae: conjunctivae normal Sclerae: sclerae normal Pupils: Equal, round and reactive pupils present Neck Neck: Yes no lymphadenopathy and Yes no JVD Thyroid: Thyroid normal Carotids: no bruits Resp Effort & Inspection: normal respiratory effort and not tachypneic Auscultation: crackles, no rales, rhonchi and no wheezes Cardio Rate: regular rate Rhythm: regular rhythm Heart sounds: no murmurs and normal S1 and S2 GI Palpation (GI): Soft to palpation, nontender, no hepatomegaly and no splenomegaly Auscultation: normal bowel sounds Skin General skin exam: no rashes or lesions noted and dry skin Neuro General: oriented to person, oriented to place and oriented to time Cranial nerves: Yes Equal, round and reactive pupils present Speech: No Abnormal speech present Gait exam (Neuro): Normal gait present Motor exam (neuro): no tremor noted Extrem Right upper extremity: full ROM Left upper extremity: full ROM Right lower extremity: full ROM; no edema Left lower extremity: full ROM; no edema Psych Mental Status: mental status grossly normal Speech and movement: Normal speech and movement present Affect: normal affect Attitude: cooperative Thought process: Normal thought process present Immunizations pneumoc 20-dulgas conj-dip cr(PF) 0.5 mL IM syringe Performing Provider: Mikael Carpio PA-C [facility] Administered by: ARTHUR Ewing on 09/05/25 15:19 Dose Route Admin Location Dispensed Lot Number Expiration Date [employer] Department Chair 0.5 mL IM Right Deltoid 0.5 mL [id number] 06/27/26 6008-9417-43 [employer] Total Dispensed Waste 0.5 mL 0 % VIS Given Date VIS Provided VIS Publication Date 09/05/25 Single Vaccine 25 Eligibility Eligibility Date Funding Source Not [facility] Eligible 09/05/25 Private Coding Level of Care Code Est Pt Level 4 (92720) Diagnoses Mixed hyperlipidemia E78.2 Hyperlipidemia type: mixed hyperlipidemia Primary hypertension I10 Hypertension type: primary hypertension CHEYANNE (generalized anxiety disorder) F41.1 Nicotine dependence, cigarettes, uncomplicated F17.210 Bronchitis J40 Additional Codes Vital Signs *Quality* - CPT code: 72724 - 4-10 Minutes ([id number]) Assessment & Plan Assessment & Plan (1) HLD (hyperlipidemia): Code(s): E78.5 - Hyperlipidemia, unspecified Category: Medical Qualifiers: Hyperlipidemia type: mixed hyperlipidemia Qualified Code(s): E78.2 - Mixed hyperlipidemia Plan: Most recent lipid panel showing good control of his total cholesterol and LDL. He will continue his current dose of statin with goal LDL to remain below 130 (2) HTN (hypertension): Code(s): I10 - Essential (primary) hypertension Category: Medical Qualifiers: Hypertension type: primary hypertension Qualified Code(s): I10 - Essential (primary) hypertension Plan: Patient's blood pressure acceptable today in office. Will continue his current dose of lisinopril 10 mg. Goal blood pressures to remain below 140/90 (3) CHEYANNE (generalized anxiety disorder): Code(s): F41.1 - Generalized anxiety disorder Category: Medical Plan: Patient continues with use of clonazepam 0.5 mg b.i.d. with good effect on reducing his anxiety. (4) Nicotine dependence, cigarettes, uncomplicated: Comment: (current smoker - onset 16yo, 1ppd x 37yrs, now 1/2ppd - 35pyh) Code(s): F17.210 - Nicotine dependence, cigarettes, uncomplicated Category: Medical Plan: Patient does understand he needs to quit smoking. He has found it very difficult to quit smoking. He would like nicotine lozenges to help him quit. I will try to reestablish him in the lung cancer screening program Patient now willing to do the pneumonia vaccine today (5) Bronchitis: Code(s): J40 - Bronchitis, not specified as acute or chronic Category: Medical Plan: For the patient's acute respiratory symptoms and finding of rhonchi in the left lung, a course of azithromycin (Z-Iraj) and a prednisone taper will be prescribed, based on the successful use of this regimen for a past episode. Orders: Orders Comprehensive [place]. Panel Fast 09/05/25 I10 - Essential (primary) hypertension Microalbumin, Random (w Creat) 09/05/25 I10 - Essential (primary) hypertension Lipid Panel 09/05/25 E78.2 - Mixed hyperlipidemia Complete Blood Count no Diff 09/05/25 K21.9 - Gastro-esophageal reflux disease without esophagitis Pneumococcal 20 Immunization 09/05/25 J40 - Bronchitis, not specified as acute or chronic, Z23 - Encounter for immunization Prostate Specific Antigen Scr 09/05/25 K21.9 - Gastro-esophageal reflux disease without esophagitis, Z12.5 - Encounter for screening for malignant neoplasm of prostate Referrals Lung Cancer Screening Referral F17.200 - Nicotine dependence, unspecified, uncomplicated, F17.210 - Nicotine dependence, cigarettes, uncomplicated Medications: New prednisone Take 3 tablets x3 days, 2 tablets x3 days, 1 tablet x3 days 10 mg PO DIREC FRANK 18 tabs 0RF 9 days J40 - Bronchitis, not specified as acute or chronic azithromycin For 250 mg dose pack: take 500 mg today (day 1), then 250 mg for 4 days (days 2-5) PO 6 tabs 0RF J40 - Bronchitis, not specified as acute or chronic Refilled lisinopril 10 mg PO DAILY 90 tabs 1RF I10 - Essential (primary) hypertension pantoprazole 40 mg PO DAILY 90 tabs 1RF 90 days K21.9 - Gastro-esophageal reflux disease without esophagitis simvastatin 20 mg PO BEDTIME 90 tabs 1RF 90 days E78.2 - Mixed hyperlipidemia clonazepam 0.5 mg PO BID 60 tabs 3RF 30 days F41.1 - Generalized anxiety disorder
[2025-09-05 14:45] VITALS: BP 100/60; PULSE 72; TEMP 36.3; O2SAT 97; BMI 25.1
--- OUTSIDE RECORDS SUMMARY | 2025-09-05 16:49 | XMS_ITS | Clinical Summary ---
Demographics Address [address] [place] [address] Home Phone Preferred Language Guyanese Marital Status Single Pentecostalism Affiliation Unknown Race White Ethnic Group Not or Lati no Author Organization 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 Not on jacinta e 12/26/2024 Are you concerned about learning? Not on file 12/26/2024 No 12/26/2024 No 12/26/2024 Digital Access Answer Date Recorded No 12/26/2024 No 12/26/2024 Reliable internet access at home? Not on file 12/26/2024 Device with a working camera? Not on file Sex and Gender Information Value Date Recorded Sex Assigned at Not on file Legal Sex Male 5:05 PM EST Gender Identity Not on file Sexual Orientation Not on file Last Filed Vital Signs Vital Sign Reading Time Taken Comments Blood Pressure 137/84 12/26/2024 10:02 PM EST Pulse 97 12/26/2024 10:02 PM EST Temperature 36.5 C (97.7 F) 12/26/2024 5:11 PM EST Respiratory Rate 20 12/26/2024 10:02 PM EST Oxygen Saturation 96% 12/26/2024 10:02 PM EST Inhaled Oxygen Concentration - - Weight - - Height - - Body Mass Index - - Plan of Treatment Not on file Medical Devices Not on file Insurance * Guarantor: Rodrigo Andrews Account Type Relation to Patient Date of Phone Billing Address Personal/Family Self 1970 [address] [place] [address] [facility] Member Subscriber Plan / Payer (Ef fective 2024-Present) Name:Rodrigo Andrews Relation to Subscriber:Self Name:Rodrigo Andrews Payer ID:[id number] (NAIC) Type:POS Address: [address] [place] [id number] Care Teams 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 It is not the complete legal health record.[facility]
== END 2025-09-05 15:20 | disposition home or self-care (01) ==
LOC: HO.HMCH 14:29
PROVIDERS: PCP Physician Assistant; Visit Provider Physician Assistant
DX: E78.2 Mixed hyperlipidemia (principal); I10 Essential (primary) hypertension; F41.1 Generalized anxiety disorder; F17.210 Nicotine dependence, cigarettes, uncomplicated; J40 Bronchitis, not specified as acute or chronic

== ENCOUNTER → 2025-09-05 14:28 | Outpatient (BNVA) | payer OTHER, SELFPAY | PROVIDERS: PCP Physician Assistant; Visit Provider Physician Assistant | DX: Z23 Encounter for immunization (principal); E78.2 Mixed hyperlipidemia; I10 Essential (primary) hypertension; F41.1 Generalized anxiety disorder; F17.210 Nicotine dependence, cigarettes, uncomplicated; J40 Bronchitis, not specified as acute or chronic | CPT/HCPCS: 90471; 90677 ==